=== PATIENT | male | born 1995 | race Caucasian/White ===

== ENCOUNTER 2016-09-14 16:00 | Emergency (ER) | payer BC ==
[2016-09-14 17:02] VITALS: BP 126/69
--- NOTE | 2016-09-14 17:16 | UC ---
Knee Pain HPI - HPI Summary HPI Summary: 3-4 days ago noticed R posterior knee pain, feels swollen when he bends it. Denies any trauma or trouble walking. No hx of surgery or instability. 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 - History of Current Complaint Stated Complaint: KNEE PAIN Time Seen by Provider: 09/14/16 16:50 Hx Obtained From: Patient Onset/Duration: Gradual Onset, Lasting Days Severity Initially: Mild Severity Currently: Mild Character: Dull, Stiffness Aggravating Factor(s): Movement, Weight Bearing - Allergies/Home Medications Allergies/Adverse Reactions: Allergies Allergy/AdvReac Type Severity Reaction Status Date / Time Amoxicillin Allergy Unknown Unknown Verified 09/14/16 16:54 Reaction Details Sulfamethoxazole Allergy Unknown Unknown Verified 06/10/14 19:37 w/Trimethoprim Reaction [From Bactrim] Details Home Medications: Home Medications Albuterol HFA INHALER* [Ventolin HFA Inhaler*] 2 inhaler INH QID PRN 09/14/16 [ History Confirmed 09/14/16] PMH/Surg Hx/FS Hx/Imm Hx Endocrine History Of: Denies: Diabetes, Thyroid Disease Cardiovascular History Of: Denies: Cardiac Disorders, Hypertension, Pacemaker/ICD Respiratory History Of: Reports: Asthma - USES AN INHALER Denies: COPD GI/ History Of: Denies: Ulcer, Renal Disease - Surgical History Surgical History: None - Family History Known Family History: Positive: Hypertension - Social History Occupation: Employed Full-time Alcohol Use: Occasionally Substance Use Type: None Smoking Status (MU): Current Every Day Smoker Type: Cigarettes Amount Used/How Often: 1/2 PPD- states down to a couple a day 12/25 Length of Time of Smoking/Using Tobacco: 4 YEARS Have You Smoked in the Last Year: Yes Review of Systems Constitutional: Negative Skin: Negative Eyes: Negative ENT: Negative Respiratory: Negative Cardiovascular: Negative Gastrointestinal: Negative Genitourinary: Negative Motor: Negative Neurovascular: Negative Musculoskeletal: Arthralgia Neurological: Negative Psychological: Negative All Other Systems Reviewed And Are Negative: Yes Physical Exam Triage Information Reviewed: Yes Appearance: Well-Appearing, No Pain Distress, Well-Nourished Vital Signs: Initial Vital Signs Temp 98.1 F 09/14/16 16:55 Pulse 91 09/14/16 16:55 Resp 16 09/14/16 16:55 BP 126/69 09/14/16 16:55 Pulse Ox 100 09/14/16 16:55 Vital Signs Reviewed: Yes Eye Exam: Normal Eyes: Positive: Conjunctiva Clear ENT Exam: Normal ENT: Positive: Normal ENT inspection, Hearing grossly normal, Pharynx normal, TMs normal Dental Exam: Normal Neck exam: Normal Respiratory Exam: Normal Respiratory: Positive: Chest non-tender, Lungs clear, Normal breath sounds, No respiratory distress, No accessory muscle use Cardiovascular Exam: Normal Cardiovascular: Positive: RRR, No Murmur Musculoskeletal Exam: Other - creaking in R knee Musculoskeletal: Positive: Strength Intact, ROM Intact Neurological Exam: Normal Psychological Exam: Normal Skin Exam: Normal Knee Pain Course/Dx - Differential Dx/Diagnosis Provider Diagnoses: R knee cordero's cyst Discharge - Discharge Plan Condition: Stable Disposition: HOME Prescriptions: Naproxen [Naproxen 500 MG TABS] 500 mg PO BID #20 tab Patient Education Materials: Bakers Cyst (ED) Referrals: Sushila Daniel MD [Medical Doctor] - If Needed
== END 2016-09-14 17:46 | disposition home or self-care (01) ==
LOC: UCEAST 16:00
DX: M71.21 Synovial cyst of popliteal space [Baker], right knee (principal); J45.909 Unspecified asthma, uncomplicated; Z88.1 Allergy status to other antibiotic agents; Z88.2 Allergy status to sulfonamides; F17.210 Nicotine dependence, cigarettes, uncomplicated
CPT/HCPCS: 99212; G0463

== ENCOUNTER 2016-12-21 01:27 | Emergency (ER) | payer BC ==
[2016-12-21 02:47] VITALS: BP 107/81
--- NOTE | 2016-12-21 03:05 | ED ---
Abdirizak Melvin Alok, scribed for Dharmesh Morris MD on 12/21/16 at 0216 . Head Injury - HPI Summary HPI Summary: 21M presents to the ED with a laceration at the top of the forehead. Pt states he was running down the stairs when he jumped to the bottom hitting his head on the ceiling on the way down. Pt denies LOC or ETOH use. Pt denies neck pain, abd pain, or hip pain. Pt is allergic to amoxicillin and bactrim. Pt is unsure of his late tetanus shot date. - History Of Current Complaint Chief Complaint: EDHeadInjury Stated Complaint: HEAD LAC Hx Obtained From: Patient Mechanism Of Injury: Blunt Trauma Onset/Duration: Started Minutes Ago, Traumatic, Still Present Onset of Pain: Immediate Severity Currently: Moderate Severity Initially: Moderate Pain Intensity: 8 Pain Scale Used: 0-10 Numeric Location of Head Injury: Frontal Location: Discrete At: - top of forehead Associated Signs And Symptoms: Negative - Allergies/Home Medications Allergies/Adverse Reactions: Allergies Allergy/AdvReac Type Severity Reaction Status Date / Time Amoxicillin Allergy Unknown Unknown Verified 09/14/16 16:54 Reaction Details Sulfamethoxazole Allergy Unknown Unknown Verified 06/10/14 19:37 w/Trimethoprim Reaction [From Bactrim] Details PMH/Surg Hx/FS Hx/Imm Hx Endocrine/Hematology History: Denies: Hx Diabetes, Hx Thyroid Disease Cardiovascular History: Denies: Hx Hypertension, Hx Pacemaker/ICD Respiratory History: Reports: Hx Asthma - USES AN INHALER Denies: Hx Chronic Obstructive Pulmonary Disease (COPD) GI History: Denies: Hx Ulcer History: Denies: Hx Dialysis, Hx Renal Disease Sensory History: Denies: Hx Hearing Aid Psychiatric History: Denies: Hx Panic Disorder Infectious Disease History: No Infectious Disease History: Denies: Hx Clostridium Difficile, Hx Hepatitis, Hx Human Immunodeficiency Virus (HIV), Hx of Known/Suspected MRSA, Hx Shingles, Hx Tuberculosis, Hx Known/ Suspected VRE, Hx Known/Suspected VRSA, History Other Infectious Disease, Traveled Outside the [place] in Last 30 Days - Family History Known Family History: Positive: Hypertension - Social History Occupation: Student Lives: With Family Alcohol Use: Occasionally Substance Use Type: Reports: None Smoking Status (MU): Current Every Day Smoker Type: Cigarettes Amount Used/How Often: 1/2 PPD- states down to a couple a day 12/25 Length of Time of Smoking/Using Tobacco: 4 YEARS Have You Smoked in the Last Year: Yes Review of Systems Negative: Fever Negative: Abdominal Pain Negative: Other - hip or neck pain Positive: Other - laceration at top of head Positive: Headache - top of head All Other Systems Reviewed And Are Negative: Yes Physical Exam - Summary Physical Exam Summary: The patient is well-nourished in no acute distress and in no acute pain. The skin is warm and dry and skin color reflects adequate perfusion. HEENT: 3cm laceration frontal region head. No segundo monae or raccoon eyes. No step-off or deformity appreciated. No crepitance. No blood in nose. The pupils are equal and reactive. The conjunctivae are clear and without drainage. Nares are patent and without drainage. Mouth reveals moist mucous membranes and the throat is without erythema and exudate. The external ears are intact. The ear canals are patent and without drainage. The tympanic membranes are intact. Neck is supple with full range of motion and non-tender. There are no carotid bruits. There is no neck vein distension. Respiratory: Chest is non-tender. Lungs are clear to auscultation and breath sounds are symmetrical and equal. Cardiovascular: Hear is regular rate and rhythm. There is no murmur or rub auscultated. There is no peripheral edema and pulses are symmetrical and equal. Abdomen: The abdomen is soft and non-tender. There are normal bowel sounds heard in all four quadrants and there is no organomegaly palpated. Musculoskeletal: There is no back pain noted. Extremities are non-tender with full range of motion. There is good capillary refill. There is no peripheral edema or calf tenderness elicited. Neurological: Patient is alert and oriented to person, place and time. The patient has symmetrical motor strength in all four extremities. Cranial nerves are grossly intact. Deep tendon reflexes are symmetrical and equal in all four extremities. Psychiatric: The patient has an appropriate affect and does not exhibit any anxiety or depression. Triage Information Reviewed: Yes Vital Signs On Initial Exam: Initial Vitals Temp Pulse Resp BP 97.8 F 117 20 120/75 12/21/16 01:33 12/21/16 01:33 12/21/16 01:33 12/21/16 01:33 Vital Signs Reviewed: Yes Procedures - Laceration/Wound Repair 1 Location: head Description: Linear Anesthesia: 2.0%, Lido Length, Depth and Shape: 3 cm long x 4 mm wide x 4mm deep Betadine Prep?: Yes - 8 cc. Laceration/Wound Explored: clean, Other - Wound explored does not extend to skull. Does not extend to subcutaneous. Only extends to Dermis Suture Type: Nylon Number of Sutures: 12 - Pt tolerated well. Diagnostics - Vital Signs Vital Signs Temp Pulse Resp BP Pulse Ox 12/21/16 01:36 97.8 F 117 20 120/75 100 12/21/16 01:33 97.8 F 117 20 120/75 - Laboratory Lab Statement: Any lab studies that have been ordered have been reviewed, and results considered in the medical decision making process. Head Injury Course/Dx Course Of Treatment: Pt presented with 3 cm laceration of the forehead. No step- off, no deformity, no crepitance. Explored wound and found it does not extend to skul or subcutaneous and only extends to dermis. 12 sutres applied pt tollerated well and will be discharged with instructions for staple care and recommendation to FU with PCP. - Diagnoses Differential Diagnosis/HQI/PQRI: Concussion Without LOC, Laceration Provider Diagnoses: Laceration of head Discharge - Discharge Plan Condition: Stable Disposition: HOME Patient Education Materials: Staple Care (ED), Concussion (ED) Referrals: Garret Cain MD [Primary Care Provider] - Additional Instructions: Please follow up with your primary care provider. Stables may be removed in one week. The documentation as recorded by the Abdirizak briseno Alok accurately reflects the service I personally performed and the decisions made by , Dharmesh Morris MD.
== END 2016-12-21 02:49 | disposition home or self-care (01) ==
LOC: ED 01:27
DX: S01.91XA Laceration without foreign body of unspecified part of head, initial encounter (principal); R51 Headache; W22.8XXA Striking against or struck by other objects, initial encounter; Y93.9 Activity, unspecified; Y99.9 Unspecified external cause status
CPT/HCPCS: 12002; 36415; 86703; 99282

== ENCOUNTER 2017-02-02 16:43 | Emergency (ER) | payer BC ==
[2017-02-02 16:55] VITALS: BP 105/67
--- NOTE | 2017-02-02 17:52 | UC ---
Complaint Male HPI - HPI Summary HPI Summary: TWO DAY HISTORY OF TENDER FLUCTUANT FIRM NODULE ON (LEFT LATERAL MID-) SHAFT OF PENIS. NO DISCHARGE. NO PENILE DISCHARGE. NEW [facility] PARTNER ONE MONTH AGO. NO PREVIOUS HISTORY OF STD. PARTNER REPORTED NO STD HISTORY. NO TESTICULAR PAIN. NO FEVER. NO RASHES. NO ABDOMINAL PAIN. NO NIGHT SWEATS. NO CHANGES IN MENTAL STATUS. NO OTHER LESIONS. NO FAMILY HISTORY OF PENILE OR TESTICULAR CANCER. - History of Current Complaint Chief Complaint: UCSkin Stated Complaint: PERSONAL Time Seen by Provider: 02/02/17 16:49 Hx Obtained From: Patient Onset/Duration: Sudden Onset, Lasting Days, Still Present Timing: Constant, Lasting Days Severity Initially: Moderate Severity Currently: Moderate Location: Penis Associated Signs And Symptoms: Positive: Penile Swelling - LESION ON LEFT LATERAL MID SHAFT OF PENIS. Negative: Diaphoresis, Back Pain, Fever, Hematuria , Dysuria, Constipation, Blood in Stool, Rectal Pain, Appetite, Nausea, Vomiting (# Of Episodes =), Penile Discharge - Allergies/Home Medications Allergies/Adverse Reactions: Allergies Allergy/AdvReac Type Severity Reaction Status Date / Time Amoxicillin Allergy Unknown Unknown Verified 02/02/17 16:56 Reaction Details Sulfamethoxazole Allergy Unknown Unknown Verified 02/02/17 16:56 w/Trimethoprim Reaction [From Bactrim] Details Home Medications: Home Medications Cyclobenzaprine TAB* [Flexeril 10 MG TAB*] 10 mg PO DAILY 02/02/17 [History Confirmed 02/02/17] Escitalopram Oxalate [Lexapro 20 mg] 20 mg PO DAILY 02/02/17 [History Confirmed 02/02/17] PMH/Surg Hx/FS Hx/Imm Hx Previously Healthy: Yes - Surgical History Surgical History: None - Family History Known Family History: Positive: Hypertension - Social History Occupation: Employed Full-time Lives: With Family Alcohol Use: Occasionally Substance Use Type: None Smoking Status (MU): Current Every Day Smoker Type: Cigarettes Amount Used/How Often: 1/2 PPD- states down to a couple a day 12/25 Length of Time of Smoking/Using Tobacco: 4 YEARS Have You Smoked in the Last Year: Yes Cessation Counseling: Patient Advised to Stop Review of Systems Constitutional: Negative Skin: Other - LESION ON LEFT LATERAL MID SHAFT OF PENIS Eyes: Negative ENT: Negative Respiratory: Negative Cardiovascular: Negative Gastrointestinal: Negative Genitourinary: Negative Motor: Negative Neurovascular: Negative Musculoskeletal: Negative Neurological: Negative Psychological: Negative All Other Systems Reviewed And Are Negative: Yes Physical Exam Triage Information Reviewed: Yes Appearance: Well-Appearing, No Pain Distress, Well-Nourished Vital Signs: Initial Vital Signs Temp 99.0 F 02/02/17 16:50 Pulse 98 02/02/17 16:50 Resp 18 02/02/17 16:50 BP 105/67 02/02/17 16:50 Pulse Ox 98 02/02/17 16:50 Vital Signs Reviewed: Yes Eye Exam: Normal ENT Exam: Normal ENT: Positive: Normal ENT inspection, Hearing grossly normal, TMs normal Dental Exam: Normal Neck exam: Normal Neck: Positive: Supple, Nontender, No Lymphadenopathy Respiratory Exam: Normal Respiratory: Positive: Chest non-tender, Lungs clear, Normal breath sounds, No respiratory distress, No accessory muscle use Cardiovascular Exam: Normal Cardiovascular: Positive: RRR, No Murmur Abdominal Exam: Normal Abdomen Description: Positive: Nontender, No Organomegaly Musculoskeletal Exam: Normal Neurological Exam: Normal Psychological Exam: Normal Psychological: Positive: Normal Response To Family Skin: Positive: Other - LESION ON LEFT LATERAL MID SHAFT OF PENIS Complaint Male Course/Dx - Differential Dx/Diagnosis Differential Diagnosis/HQI/PQRI: Cancer, Other - STD Provider Diagnoses: ABSCESS ON LEFT LATERAL MID SHAFT OF PENIS - Physician Notifications Instructed by Provider To: Have Pt Call For Appt. - PLEASE CALL DR BURROWS[facility] SERVICE FOR EVALUATION OF LESION Discharge - Discharge Plan Condition: Stable Disposition: HOME Prescriptions: DOXYcycline CAP(*) [DOXYcycline 100MG CAP(*)] 100 mg PO BID #20 cap Patient Education Materials: Sexually Transmitted Diseases (ED), Abscess (ED) Referrals: [facility] [place] [facility]YSICIAN REFERRAL [Outside] Garret Cain MD [Primary Care Provider] - Todd Burrows MD [Medical Doctor] - Additional Instructions: PLEASE RETURN IF YOU HAVE POSITIVE STD RESULTS FOR FURTHER TREATMENT. PLEASE SEEK PROMPT EVALUATION WITH DR BURROWS[facility] SERVICE FOR EVALUATION OF LESION/ ABSCESS. PRIMARY CARE REFERRAL INFORMATION HAS ALSO BEEN PROVIDED. Images Perineum Male: 1 - 2CM X 1CM TENDER FIRM FLUCTUANT MARCATED LOOSELY MOBILE NODULE UNDER SKIN ON LEFT LATERAL MIDSHAFT OF PENIS
[2017-02-02] MEDS ORDERED: DOXYcycline CAP(*) 100 MG PO ONE (17:55)
[2017-02-03 11:40] LABS: Syphilis Index < 0.1 Index
== END 2017-02-02 18:04 | disposition home or self-care (01) ==
LOC: UCEAST 16:43
DX: N48.21 Abscess of corpus cavernosum and penis (principal); Z72.0 Tobacco use
CPT/HCPCS: 36415; 86592; 86703; 87491; 87591; 99212; A9270-GY; G0463

== ENCOUNTER 2017-02-24 08:46 | Emergency (ER) | payer BC ==
[2017-02-24 09:01] VITALS: BP 126/86
--- NOTE | 2017-02-24 09:17 | RAD ---
HISTORY: Left-sided chest pain COMPARISONS: None VIEWS: 4: Frontal dual-energy and lateral views of the chest. FINDINGS: CARDIOMEDIASTINAL SILHOUETTE: The cardiomediastinal silhouette is normal. MIRLANDE: The mirlande are normal. PLEURA: The costophrenic angles are sharp. No pleural abnormalities are noted. LUNG PARENCHYMA: The lungs are clear. ABDOMEN: The upper abdomen is clear. There is no subphrenic gas. BONES AND SOFT TISSUES: No bone or soft tissue abnormalities are noted. OTHER: None. IMPRESSION: NO ACTIVE CARDIOPULMONARY DISEASE.
--- NOTE | 2017-02-24 09:58 | UC ---
Cardiac HPI - HPI Summary HPI Summary: 21 yo male with a 4-5 day hx of constant left sided chest pain pain is localized to a small area (left upper sternal border) and non radiating hurts with deep breath symptoms have not limited his activity no SOB no n/v no uri sxs no f/c no abd pain - History of Current Complaint Chief Complaint: UCChestPain Stated Complaint: CHEST PAIN Time Seen by Provider: 02/24/17 08:49 Hx Obtained From: Patient Onset/Duration: Sudden Onset Timing: Constant Initial Severity: Moderate Current Severity: Moderate Pain Intensity: 4 Chest Pain Location: Discrete at:, Upper Sternal - Left Character: Sharp/Stabbing Aggravating: Deep Breaths Associated Signs & Symptoms: Positive: Chest Pain - Allergy/Home Medications Allergies/Adverse Reactions: Allergies Allergy/AdvReac Type Severity Reaction Status Date / Time Amoxicillin Allergy Unknown Unknown Verified 02/24/17 08:56 Reaction Details Sulfamethoxazole Allergy Unknown Unknown Verified 02/24/17 08:56 w/Trimethoprim Reaction [From Bactrim] Details PMH/Surg Hx/FS Hx/Imm Hx Previously Healthy: Yes Psychological History: Anxiety - Surgical History Surgical History: None - Family History Known Family History: Positive: Hypertension - Social History Alcohol Use: Occasionally Substance Use Type: None Smoking Status (MU): Current Every Day Smoker Type: Cigarettes Amount Used/How Often: 1/2-1 PPD Length of Time of Smoking/Using Tobacco: 4 YEARS Have You Smoked in the Last Year: Yes Review of Systems Constitutional: Negative Skin: Negative Eyes: Negative ENT: Negative Respiratory: Negative Cardiovascular: Chest Pain Gastrointestinal: Negative Genitourinary: Negative Motor: Negative Neurovascular: Negative Musculoskeletal: Negative Neurological: Negative Psychological: Negative All Other Systems Reviewed And Are Negative: Yes Physical Exam Triage Information Reviewed: Yes Appearance: Well-Appearing, No Pain Distress, Well-Nourished, Thin Vital Signs: Initial Vital Signs Temp 97.9 F 02/24/17 08:53 Pulse 106 02/24/17 08:53 Resp 16 02/24/17 08:53 BP 126/86 02/24/17 08:53 Pulse Ox 99 02/24/17 08:53 Vital Signs Reviewed: Yes Eyes: Positive: Conjunctiva Clear ENT: Positive: Hearing grossly normal. Negative: Nasal congestion, Nasal drainage, Trismus, Muffled/hoarse voice Dental: Negative: Abscess @ Neck: Positive: Supple, Nontender, No Lymphadenopathy Respiratory: Positive: Lungs clear, Normal breath sounds, No respiratory distress. Negative: Chest non-tender Cardiovascular: Positive: RRR, No Murmur, Pulses Normal Abdomen Description: Positive: Nontender, No Organomegaly. Negative: CVA Tenderness (R) Musculoskeletal: Positive: ROM Intact, No Edema Neurological: Positive: Alert, Muscle Tone Normal Psychological Exam: Normal Skin Exam: Normal - Clinical Impression Provider Diagnoses: acute chest wall pain Discharge - Discharge Plan Condition: Stable Disposition: HOME Patient Education Materials: Costochondritis (ED), Chest Wall Pain (ED) Referrals: No Primary Care Phys,NOPCP [Primary Care Provider] - Additional Instructions: continue naproxen heat recheck in 2 weeks if not completely better recheck sooner for new or worsening symptoms see you MD in 2 weeks if not better if unable to see your provider you may return here Images Front/Back of Body, Lg ([place]): 1 - pain here and reproducable
== END 2017-02-24 09:55 | disposition home or self-care (01) ==
LOC: UCEAST 08:46
DX: R07.89 Other chest pain (principal); F41.9 Anxiety disorder, unspecified; Z88.1 Allergy status to other antibiotic agents; Z88.2 Allergy status to sulfonamides; F17.210 Nicotine dependence, cigarettes, uncomplicated
CPT/HCPCS: 71020; 99211; G0463

== ENCOUNTER 2017-09-13 14:59 | Emergency (ER) | payer BC ==
[2017-09-13 15:23] VITALS: BP 120/81
--- NOTE | 2017-09-13 15:54 | UC ---
Skin Complaint HPI - HPI Summary HPI Summary: 21 y/o male presents to the urgent care c/o rash in his RT arm, back and chest that itches a lot for the past 2 weeks. Pt went to see his PCP at [facility] and Dx w/ a fungal infection and RX Ketokonazole. He has been applying cream w/ any relief. Pt denies fever, SOB, chest pain, abdominal pain, N/V/D - History of Current Complaint Chief Complaint: UCRash Time Seen by Provider: 09/13/17 15:52 Stated Complaint: RASH Hx Obtained From: Patient Onset/Duration: Gradual Onset, Lasting Weeks - 2 weeks, Still Present, Worse Since - last week Skin Exposure Onset/Duration: Weeks Ago - 2 weeks Onset Severity: Mild Current Severity: Moderate Pain Intensity: 0 Pain Scale Used: 0-10 Numeric Location: Generalized - B/L arms, chest and upper back Character: Pruritus Aggravating Factor(s): Nothing Alleviating Factor(s): Nothing Associated Signs & Symptoms: Positive: Rash. Negative: Fever, Chills, Drainage , Tenderness - Allergy/Home Medications Allergies/Adverse Reactions: Allergies Allergy/AdvReac Type Severity Reaction Status Date / Time amoxicillin Allergy Unknown Verified 09/13/17 15:24 Reaction Details sulfamethoxazole Allergy Unknown Verified 09/13/17 15:24 [From Bactrim] Reaction Details trimethoprim [From Bactrim] Allergy Unknown Verified 09/13/17 15:24 Reaction Details Review of Systems Constitutional: Negative Skin: Rash Eyes: Negative ENT: Negative Respiratory: Negative Cardiovascular: Negative Gastrointestinal: Negative Genitourinary: Negative Motor: Negative Neurovascular: Negative Musculoskeletal: Negative Neurological: Negative Psychological: Negative Is Patient Immunocompromised?: No All Other Systems Reviewed And Are Negative: Yes PMH/Surg Hx/FS Hx/Imm Hx Previously Healthy: Yes Respiratory History: Asthma Psychological History: Anxiety, Depression - Surgical History Surgical History: None - Family History Known Family History: Positive: Hypertension - Social History Occupation: Employed Full-time Lives: With Family Alcohol Use: Occasionally Substance Use Type: None Smoking Status (MU): Light Every Day Tobacco Smoker Type: Cigarettes Amount Used/How Often: 1/2 PPD- states down to a couple a day 6/ Length of Time of Smoking/Using Tobacco: 4 YEARS Have You Smoked in the Last Year: Yes Physical Exam Triage Information Reviewed: Yes Vital Signs: Initial Vital Signs Temp 98.1 F 09/13/17 15:21 Pulse 102 09/13/17 15:21 Resp 12 09/13/17 15:21 BP 120/81 09/13/17 15:21 Pulse Ox 99 09/13/17 15:21 - Additional Comments Vital Signs Reviewed: Yes General: 21 y/o male well appearing, well nourished in no acute apparent pain distress, sitting comfortably on examining table Eye Exam: Normal Eyes: Positive: Conjunctiva Clear - PERRLA< EOMI, fundi grossly normal ENT: Positive: Normal ENT inspection, Hearing grossly normal, Pharynx normal, TMs normal Neck: Positive: Supple, Nontender, No Lymphadenopathy Respiratory: Positive: Chest non-tender, Lungs clear, Normal breath sounds, No respiratory distress Cardiovascular: Positive: RRR, No Murmur, Pulses Normal, Brisk Capillary Refill Abdomen Description: Positive: Nontender, No Organomegaly, Soft. Negative: CVA Tenderness (R), CVA Tenderness (L) Bowel Sounds: Positive: Present Musculoskeletal: Positive: Strength Intact, ROM Intact, No Edema Neurological: Positive: Alert, Muscle Tone Normal Psychological Exam: Normal Skin: Positive: B/L arms. chest , upper back w/ and erythematous eruptions with a large number of oval spots, ranging in diameter from 0.5 centimeter to 1 cm.. The individual spots form a symmetrical "Yogi tree" pattern on the back. chest w/ typical herald patch, non tender to palpation, no drainage observed, signs of excoriation observed Course/Dx - Course Course Of Treatment: 21 y/o male presents to the urgent care c/o rash in his RT arm, back and chest that itches a lot for the past 2 weeks. Pt went to see his PCP at [place] and Dx w/ a fungal infection and RX Ketokonazole. He has been applying cream w/ any relief. Pt denies fever, SOB, chest pain, abdominal pain, N/V/D. Hx obtained. Pt w/ unspecified rash in B/L arms, chest and upper back. Pt w/ herald patch on chest. Most likely Pityriasis Rocea. Tx w/ Ketoconazole getting worse. Pt Advised rash is self limited and it can take few weeks to resolve. Pt Rx Acyclovir PO and Hydrocortisone topical cream to alleviate symptoms. Pt advised to f/u w/ Vocational Training Instructor orPCP is not improvement of symptoms. Pt understood and agreed w/ plan of care. - Differential Diagnoses - Skin Complaint Differential Diagnoses: Contact Dermatitis, Local Allergic Reaction, Tinea, Urticaria, Varicella Zoster - Diagnoses Provider Diagnoses: 1- Acute rash possible Pityriasis Rosea. 2-Pruritus Discharge - Discharge Plan Condition: Stable Disposition: HOME Prescriptions: Acyclovir* [Zovirax 400 MG TAB*] 800 mg PO QID #28 tab Hydrocortisone/Pramoxine [Hydrocortisone Acetate/Pr] 1 cre [place] BID #1 cre Patient Education Materials: Acute Rash (ED) Referrals: [facility] [place] [facility] REFERRAL [Outside] Carolann Gama [Medical Doctor] - 1 Week Additional Instructions: 1-Please take full course of Medication as directed. 2- apply toical cream as directed andrey alleviate pruritus. 3-Please F/u with your PCP or Vocational Training Instructor if not improvement or worsening symptoms in 1 week for further evaluation and treatment.
== END 2017-09-13 16:37 | disposition home or self-care (01) ==
LOC: UCEAST 14:59
DX: R21 Rash and other nonspecific skin eruption (principal); L29.9 Pruritus, unspecified; J45.909 Unspecified asthma, uncomplicated; F41.9 Anxiety disorder, unspecified; F32.9 Major depressive disorder, single episode, unspecified; Z88.1 Allergy status to other antibiotic agents; Z88.2 Allergy status to sulfonamides; F17.210 Nicotine dependence, cigarettes, uncomplicated
CPT/HCPCS: 99212; G0463

== ENCOUNTER 2018-05-01 19:08 | Emergency (ER) | payer BC ==
[2018-05-01 19:21] VITALS: BP 118/93
[2018-05-01] MEDS ORDERED: Metoclopramide TAB* 10 MG PO ONE (19:25)
[2018-05-01] MEDS ORDERED: Ketorolac INJ* 60 MG/2 ML VIAL IM ONE (19:25)
--- NOTE | 2018-05-01 19:30 | UC ---
Headache HPI - HPI Summary HPI Summary: This patient is a 22 year old M presenting to [facility] with a chief complaint of PATRICIA since around 1730 today. He reports he has had 3 migraines in the last week. On the first and second day, his migraine was subsided by Imitrex, but today, it continued even after taking Imitrex. The patient rates the pain 8/10 in severity. Symptoms aggravated by light and noise. Symptoms alleviated by nothing. Patient reports nausea and vomiting (x1 while driving here). Patient denies fever, chills, and neck pain. The patient is ambulating in and out of the room. PMHx of migraines. - History Of Current Complaint Chief Complaint: UCHeadache Stated Complaint: HEADACHE Time Seen by Provider: 05/01/18 19:19 Hx Obtained From: Patient Onset/Duration: Sudden Onset, Lasting Weeks - since 1 week ago (had 3 migraines) , Still Present Onset Of Symptoms: Sudden Currently Pain Is: Severe Pain Intensity: 8 Pain Scale Used: 0-10 Numeric Timing: Intermittent, Lasting: Character: Migraine Aggravating Factor(s): Bright Lights, Other - noise Allevating Factor(s): Nothing Associated Signs And Symptoms: Positive: Nausea, Vomiting, Other (Noted In Comments) - denies chills. Negative: Fever, Neck Pain - Allergies/Home Medications Allergies/Adverse Reactions: Allergies Allergy/AdvReac Type Severity Reaction Status Date / Time amoxicillin Allergy Unknown Verified 05/01/18 19:13 Reaction Details sulfamethoxazole Allergy Unknown Verified 05/01/18 19:13 [From Bactrim] Reaction Details trimethoprim [From Bactrim] Allergy Unknown Verified 05/01/18 19:13 Reaction Details Home Medications: Home Medications SUMAtriptan TAB* [Imitrex TAB*] 1 tab PO BID 05/01/18 [History Confirmed ] PMH/Surg Hx/FS Hx/Imm Hx Respiratory History: Asthma Neurological History: Migraine - Surgical History Surgical History: Yes Surgery Procedure, Year, and Place: Moles removes. - Family History Known Family History: Positive: Hypertension - Social History Alcohol Use: Occasionally Substance Use Type: Marijuana Substance Use Comment - Amount & Last Used: 04/30/18 Smoking Status (MU): Light Every Day Tobacco Smoker Type: Cigarettes Amount Used/How Often: 1/2ppd Length of Time of Smoking/Using Tobacco: approx 2009 Have You Smoked in the Last Year: Yes Review of Systems Constitutional: Other - denies fever and chills Eyes: Photophobia Gastrointestinal: Vomiting, Nausea Musculoskeletal: Other: - denies neck pain Neurological: Headache - migraine aggravated by light and sound All Other Systems Reviewed And Are Negative: Yes Physical Exam - Summary Physical Exam Summary: VITAL SIGNS: Reviewed. GENERAL: Patient is a well-developed and nourished MALE who is lying comfortable in the stretcher. Patient is not in any acute respiratory distress. HEAD AND FACE: Normocephalic EYES: PERRLA, EOMI x 2. EARS: Hearing grossly intact. MOUTH: Oropharynx within normal limits. NECK: Supple, trachea is midline, no adenopathy, no JVD, no carotid bruit. No meningeal signs. CHEST: Symmetric, no tenderness at palpation LUNGS: Clear to auscultation bilaterally. No wheezing or crackles. CVS: Regular rate and rhythm, S1 and S2 present, no murmurs or gallops appreciated. ABDOMEN: Soft, non-tender. Bowel sounds are normal. No abdominal abnormal pulsations. EXTREMITIES: Full ROM in all major joints, no edema, no cyanosis or clubbing. NEURO: Alert and oriented x 3. No acute neurological deficits. Speech is normal and follows commands. SKIN: Dry and warm Triage Information Reviewed: Yes Vital Signs: Initial Vital Signs Temp 97.3 F 05/01/18 19:16 Pulse 81 05/01/18 19:16 Resp 18 05/01/18 19:16 BP 118/93 05/01/18 19:16 Pulse Ox 100 05/01/18 19:16 Vital Signs Reviewed: Yes Headache Course/Dx - Course Course Of Treatment: Patient is a 22-year-old male who presents to the urgent care with chief complaint of having a migraine headache. Patient has history migraine headaches for which the patient takes Imitrex. In the last week he has had 3 episodes of migraines. He took Imitrex the symptoms improved. Today he took the Imitrex and the symptoms did not improve. He had one episode of nausea and vomiting therefore he doesn't think he kept the Imitrex. Therefore he came into the urgent care. The headache is a throbbing-like pain, 8 out of 10 without radiation. He denies any neck pain or stiff neck. Positive photophobia and is irritated by noice. Physical exam shows no meningeal signs, the neurological exam is intact. He was given Toradol, Benadryl and Reglan. At this point the patient will be discharged home with follow-up with primary care physician. Patient is hemodynamically stable alert and oriented 3. - Differential Dx/Diagnosis Provider Diagnoses: migraine Discharge - Sign-Out/Discharge Documenting (check all that apply): Patient Departure All imaging exams completed and their final reports reviewed: No Studies - Discharge Plan Condition: Stable Disposition: HOME Patient Education Materials: Migraine Headache (ED) Referrals: [facility] [place] [facility] [Outside] Additional Instructions: Take Acetaminophen or ibuprofen for pain Increase your fluid intake Return to the or go to the emergency department if symptoms worsen Follow-up with primary care physician in next 2-3 days - Billing Disposition and Condition Condition: STABLE Disposition: Home - Attestation Statements Document Initiated by Scribe: Yes Documenting Scribe: Angel Negrete Provider For Whom Scribe is Documenting (Include Credential): Edgardo Stone MD Scribe Attestation: Angel Melvin, scribed for Edgardo Stone MD on 05/01/18 at 2043. Scribe Documentation Reviewed: Yes Provider Attestation: The documentation as recorded by the Angel briseno accurately reflects the service I personally performed and the decisions made by me, Edgardo Stone MD
[2018-05-01] MEDS: diPHENhydraMINE PO* 50 MG PO ONE ×2 (19:34→19:41)
== END 2018-05-01 19:59 | disposition home or self-care (01) ==
LOC: UCEAST 19:08
DX: G43.909 Migraine, unspecified, not intractable, without status migrainosus (principal); F17.210 Nicotine dependence, cigarettes, uncomplicated; Z88.0 Allergy status to penicillin
CPT/HCPCS: 99212; A9270-GY; G0463; J1885

== ENCOUNTER 2018-10-30 12:10 | Emergency (ER) | payer BC ==
[2018-10-30 12:20] VITALS: BP 118/75
--- NOTE | 2018-10-30 12:26 | UC ---
Throat Pain/Nasal Kyle HPI - HPI Summary HPI Summary: 23 -year-old male with sore throat and bilateral ear since last evening. - History of Current Complaint Chief Complaint: UCGeneralIllness Stated Complaint: SORE THROAT EAR PAIN HEADACHE Time Seen by Provider: 10/30/18 12:26 Hx Obtained From: Patient Onset/Duration: Gradual Onset Severity: Mild Pain Intensity: 5 Cough: None Associated Signs & Symptoms: Positive: Negative - Epiglottits Risk Factors Epiglottis Risk Factors: Negative - Allergies/Home Medications Allergies/Adverse Reactions: Allergies Allergy/AdvReac Type Severity Reaction Status Date / Time amoxicillin Allergy Unknown Verified 10/30/18 12:20 Reaction Details sulfamethoxazole Allergy Unknown Verified 10/30/18 12:20 [From Bactrim] Reaction Details trimethoprim [From Bactrim] Allergy Unknown Verified 10/30/18 12:20 Reaction Details PMH/Surg Hx/FS Hx/Imm Hx Previously Healthy: Yes - Surgical History Surgical History: Yes Surgery Procedure, Year, and Place: Moles removed - Family History Known Family History: Positive: Hypertension - Social History Alcohol Use: Weekly Substance Use Type: Marijuana Substance Use Comment - Amount & Last Used: 04/30/18 Smoking Status (MU): Light Every Day Tobacco Smoker Type: Cigarettes Amount Used/How Often: 1/2ppd Length of Time of Smoking/Using Tobacco: approx 2009 Have You Smoked in the Last Year: Yes Review of Systems All Other Systems Reviewed And Are Negative: Yes Constitutional: Positive: Fever ENT: Positive: Sore Throat Is Patient Immunocompromised?: No Physical Exam Triage Information Reviewed: Yes Appearance: Well-Appearing, No Pain Distress, Well-Nourished Vital Signs: Initial Vital Signs Temp 98.9 F 10/30/18 12:15 Pulse 97 10/30/18 12:15 Resp 16 10/30/18 12:15 BP 118/75 10/30/18 12:15 Pulse Ox 97 10/30/18 12:15 Vital Signs Reviewed: Yes Eye Exam: Normal ENT: Positive: Pharyngeal erythema, Tonsillar swelling, Tonsillar exudate, Uvula midline. Negative: Trismus, Muffled voice, Hoarse voice Neck: Positive: Supple, Nontender, Enlarged Nodes @ - Bilateral tonsillar lymph nodes enlarged. Respiratory: Positive: Lungs clear, Normal breath sounds, No respiratory distress, No accessory muscle use Cardiovascular: Positive: RRR, No Murmur, Pulses Normal, Brisk Capillary Refill Musculoskeletal Exam: Normal Neurological Exam: Normal Psychological Exam: Normal Skin Exam: Normal Throat Pain/Nasal Course/Dx - Course Course Of Treatment: Rapid strep test was: positive. Because the patient has some allergies to certain antibiotics and going to start him on clindamycin 300 mg by mouth 3 times a day for 10 days. Change his toothbrush in 24 hours. - Differential Dx/Diagnosis Provider Diagnosis: Strep pharyngitis Discharge - Sign-Out/Discharge Documenting (check all that apply): Patient Departure All imaging exams completed and their final reports reviewed: No Studies - Discharge Plan Condition: Fair Disposition: HOME Prescriptions: Clindamycin Cap(NF) [Clindamycin Cap 300 mg Cap(NF)] 300 mg PO TID 10 Days #30 cap Patient Education Materials: Strep Throat (DC) Referrals: [facility] [Outside] No Primary Care Phys,NOPCP [Primary Care Provider] - Additional Instructions: Increase fluids, warm saltwater gargles, Tylenol every 4 hours or Motrin every 6 -8 hours with food for pain. Take the medication for the full 10 days. Change your toothbrush in 24 hours. - Billing Disposition and Condition Condition: FAIR Disposition: Home
--- NOTE | 2018-11-02 13:30 | UC ---
- Progress Note Progress Note: Lab work lab work from October 30, 2018 for HIV 1 and 2 antibody self-referred comes back reflexed. [facility] laboratory calls and states they do not have a lavender top tube to complete the rest of the test. I called and left a message for the patient to call us back. The patient called back and he's planning to come in and get the lavender top tube drawn today at approximately 6 PM. Course/Dx - Diagnoses Provider Diagnoses: Strep pharyngitis Discharge - Sign-Out/Discharge Documenting (check all that apply): Patient Departure All imaging exams completed and their final reports reviewed: No Studies - Discharge Plan Condition: Fair Disposition: HOME Prescriptions: Clindamycin Cap(NF) [Clindamycin Cap 300 mg Cap(NF)] 300 mg PO TID 10 Days #30 cap Patient Education Materials: Strep Throat (DC) Referrals: [facility] [Outside] No Primary Care Phys,NOPCP [Primary Care Provider] - Additional Instructions: Increase fluids, warm saltwater gargles, Tylenol every 4 hours or Motrin every 6 -8 hours with food for pain. Take the medication for the full 10 days. Change your toothbrush in 24 hours. - Billing Disposition and Condition Condition: FAIR Disposition: Home
== END 2018-10-30 12:49 | disposition home or self-care (01) ==
LOC: UCEAST 12:10
DX: J02.0 Streptococcal pharyngitis (principal); Z88.0 Allergy status to penicillin; Z88.2 Allergy status to sulfonamides; F17.210 Nicotine dependence, cigarettes, uncomplicated
CPT/HCPCS: 36415; 86701; 86702; 86703; 87651; 99212; G0463

== ENCOUNTER 2019-02-15 11:57 | Emergency (ER) | payer BC ==
[2019-02-15] MEDS ORDERED: Famotidine TAB* 20 MG PO ONE (12:23)
[2019-02-15] MEDS ORDERED: Dexamethasone IV* 4 MG/ML 1 ML (4 MG) IM ONE (12:23)
[2019-02-15 13:35] VITALS: BP 112/68
--- NOTE | 2019-02-15 14:20 | ED ---
Allergic Reaction/Systemic - HPI Summary HPI Summary: This patient is a 23-year-old male presenting to the ED with right lower lip swelling from a bee sting approximately 10 minutes prior to arrival. He states he took 2 Benadryl, however was concerned with throat involvement. He currently denies any dysphagia, odynophagia, throat tightening, difficulty breathing or shortness of breath. He is unsure if he is allergic to bees. He states the right lower lip swelled up, but denies any worsening swelling or symptoms. He denies heart racing or CP. - History of Current Complaint Chief Complaint: EDAllergicReaction Time Seen by Provider: 02/15/19 12:20 Hx Obtained From: Patient Onset/Duration: Gradual Onset Timing: Constant Severity Initially: Moderate Severity Currently: Moderate Pain Intensity: 0 Pain Scale Used: 0-10 Numeric Location: Discrete @ - right lower lip Character: Swelling Alleviating Factor(s): Antihistamines Associated Signs And Symptoms: Positive: Negative - Related Hx Possible Reaction To: Insect - Allergies/Home Medications Allergies/Adverse Reactions: Allergies Allergy/AdvReac Type Severity Reaction Status Date / Time amoxicillin Allergy Unknown Verified 02/15/19 12:02 Reaction Details sulfamethoxazole Allergy Unknown Verified 02/15/19 12:02 [From Bactrim] Reaction Details trimethoprim [From Bactrim] Allergy Unknown Verified 02/15/19 12:02 Reaction Details Home Medications: Home Medications Bictegrav/Emtricit/Tenofov Ala [Biktarvy 50-200-25 mg Tablet] 1 tab PO DAILY 11/29 [History Confirmed 02/15/19] PMH/Surg Hx/FS Hx/Imm Hx Previously Healthy: Yes Endocrine/Hematology History: Denies: Hx Diabetes, Hx Thyroid Disease Cardiovascular History: Denies: Hx Hypertension, Hx Pacemaker/ICD Respiratory History: Reports: Hx Asthma - USES AN INHALER Denies: Hx Chronic Obstructive Pulmonary Disease (COPD) GI History: Denies: Hx Ulcer History: Denies: Hx Dialysis, Hx Renal Disease Sensory History: Denies: Hx Hearing Aid Psychiatric History: Denies: Hx Panic Disorder - Surgical History Surgery Procedure, Year, and Place: Moles removed - Immunization History Hx Pertussis Vaccination: No Immunizations Up to Date: Yes Infectious Disease History: Yes Infectious Disease History: Denies: Hx Clostridium Difficile, Hx Hepatitis, Hx Human Immunodeficiency Virus (HIV), Hx of Known/Suspected MRSA, Hx Shingles, Hx Tuberculosis, Hx Known/ Suspected VRE, Hx Known/Suspected VRSA, History Other Infectious Disease, Traveled Outside the [place] in Last 30 Days - Family History Known Family History: Positive: Hypertension - Social History Occupation: Employed Full-time Lives: With Family Alcohol Use: Weekly Hx Substance Use: Yes Substance Use Type: Reports: Marijuana Substance Use Comment - Amount & Last Used: 04/30/18 Hx Tobacco Use: Yes Smoking Status (MU): Light Every Day Tobacco Smoker Type: Cigarettes Amount Used/How Often: 1/2ppd Length of Time of Smoking/Using Tobacco: approx 2009 Have You Smoked in the Last Year: Yes Review of Systems Negative: Fever, Chills, Fatigue, Skin Diaphoresis Negative: Palpitations, Chest Pain Negative: Shortness Of Breath, Cough Negative: Nausea Genitourinary: Negative Positive: no symptoms reported, see HPI Negative: Arthralgia, Myalgia Positive: Other - right lower lip swelling Neurological: Negative Negative: Anxious All Other Systems Reviewed And Are Negative: Yes Physical Exam Triage Information Reviewed: Yes Vital Signs On Initial Exam: Initial Vitals Temp Pulse Resp BP Pulse Ox 97.7 F 90 16 130/95 97 02/15/19 11:59 02/15/19 11:59 02/15/19 11:59 02/15/19 11:59 02/15/19 11:59 Vital Signs Reviewed: Yes Appearance: Positive: Well-Appearing, Well-Nourished Skin: Positive: Warm, Skin Color Reflects Adequate Perfusion, Other - right lower lip swelling Head/Face: Positive: Normal Head/Face Inspection Eyes: Positive: EOMI, Conjunctiva Clear Neck: Positive: Supple, No Lymphadenopathy Respiratory/Lung Sounds: Positive: Clear to Auscultation, Breath Sounds Present Cardiovascular: Positive: Pulses are Symmetrical in both Upper and Lower Extremities Musculoskeletal: Positive: Strength/ROM Intact Neurological: Positive: Speech Normal Psychiatric: Positive: Affect/Mood Appropriate AVPU Assessment: Alert Diagnostics - Vital Signs Vital Signs Temp Pulse Resp BP Pulse Ox 02/15/19 13:33 98.3 F 64 16 112/68 99 02/15/19 11:59 97.7 F 90 16 130/95 97 - Laboratory Lab Statement: Any lab studies that have been ordered have been reviewed, and results considered in the medical decision making process. Allergic Reaction Course/Dx - Course Course Of Treatment: On physical examination, patient appears well, nondiaphoretic and nontoxic in appearing. There is mild swelling to the right lower lip where there is an obvious sting carter. He is given Decadron 8 mg IM as well as ice to the area and famotidine 40 mg. He took 50 mg Benadryl prior to arrival. On reexamination approximately one hour later, patient is asymptomatic with no swelling noted. Airway patent. No pharyngeal erythema or tonsillar swelling. He will be discharged with insect bite. - Diagnoses Provider Diagnoses: Lip swelling, Bee sting Discharge - Sign-Out/Discharge Documenting (check all that apply): Patient Departure Patient Received Moderate/Deep Sedation with Procedure: No - Discharge Plan Condition: Stable Disposition: HOME Patient Education Materials: Insect Bite or Sting (ED) Referrals: Rosi Martell MD [Primary Care Provider] - Additional Instructions: Benadryl before bed and as needed for any continuous swelling Ice to the area - Billing Disposition and Condition Condition: STABLE Disposition: Home
== END 2019-02-15 13:33 | disposition home or self-care (01) ==
LOC: ED 11:57
DX: T63.441A Toxic effect of venom of bees, accidental (unintentional), initial encounter (principal); R60.9 Edema, unspecified; Y92.9 Unspecified place or not applicable; Z88.0 Allergy status to penicillin; J45.909 Unspecified asthma, uncomplicated; F17.210 Nicotine dependence, cigarettes, uncomplicated
CPT/HCPCS: 96372; 99282; A9270-GY; J1100

== ENCOUNTER 2019-04-02 19:31 | Emergency (ER) | payer BC ==
--- OUTSIDE RECORDS SUMMARY | 2019-04-02 19:37 | XMS REPORT | Continuity of Care Document ---
:1995 External Reference #:[id number] Author Name Cristian Partida M.D. (transmitted by agent of provider Rosaura Grullon ) Address [address] [place] [address] Care Team Providers Name Role Phone Rosi Martell MD - Internal Medicine Care Team Information Director Supply [phone] Problems Active Problems Provider Date Anxiety state Celio Espana M.D. Onset: 06/13/2017 Derangement of knee Celio Espana M.D. Onset: 06/13/2017 Temporomandibular joint disorder Celio Espana M.D. Onset: 06/13/2017 Asthma without status asthmaticus Celio Espana M.D. Onset: 03/06/2017 Migraine with typical aura Boogie Romero MD Onset: 05/14/2018 Social History Type Date Description Comments Sex Unknown ETOH Use Currently consumes alcohol ETOH Use Occasionally consumes alcohol Tobacco Use Start: Unknown Patient is a current smoker, smokes every day Recreational Drug Use Regularly uses Marijuana Tobacco Use Start: Unknown Heavy tobacco smoker (more than 10 cigarettes/day) Smoking Status Reviewed: 03/30/19 Heavy tobacco smoker (more than 10 cigarettes/day) Exercise Type/Frequency Exercises sporadically Allergies, Adverse Reactions, Alerts Active Allergies Reaction Severity Comments Date Amoxicillin childhood reaction 11/03/2012 Bactrim childhood reaction 11/03/2012 Medications Active Medications SIG Qnty Indications Ordering Provider Date Biktarvy Take 1 tablet 30tabs Z21 Penny Rudd 11/26/2018 50-200-25mg by mouth daily KARLEE Treadwell Tablets Naproxen 1 by mouth 90tabs M22.2x2 Richard Celaya, 10/08/2016 500mg twice a day as MD Tablets needed pain Ibuprofen 2 caps po prn Unknown 200mg Capsules Albuterol Sulfate Unknown Sumatriptan take 1 tablet Unknown Succinate by mouth if 50mg needed for Tablets Migraine, May Repeat In 2 Hours I History Medications Azithromycin take 2 tabs orally 2tabs Penny Blaire 11/19/2018 - 500mg x 1 (take this the KARLEE Treadwell 11/20/2018 Tablets same day you have your injection) Immunizations CPT Code Status Date Vaccine Lot # [id number] Given 03/30/2019 Pneumonia Vaccine [id number] Given 11/26/2018 Pneumococcal Conjugate Vaccine 13 Valent For [id number] Intramuscular Use Vital Signs Date Vital Result Comment 03/30/2019 10:21am Height 68 inches 5'8" Weight 142.50 lb Heart Rate 84 /min BP Systolic Sitting 118 mmHg BP Diastolic Sitting 80 mmHg Respiratory Rate 14 /min Body Temperature 98.1 F BMI (Body Mass Index) 21.7 kg/m2 12/29/2018 11:19am Height 68 inches 5'8" Weight 139.12 lb Heart Rate 84 /min BP Systolic Sitting 110 mmHg BP Diastolic Sitting 68 mmHg Respiratory Rate 14 /min Body Temperature 97.3 F BMI (Body Mass Index) 21.2 kg/m2 Results Test Date Facility Test Result H/L Range Note CBC Auto 03/23/2019 [facility] White Blood 6.2 10^3/uL Normal 3.5-10.[address] [place] [address] [phone] Red Blood Count 4.52 10^6/uL Normal 4.18-5.48 Hemoglobin 14.5 g/dL Normal 14.0-18.0 Hematocrit 42 % Normal 42-52 Mean Corpuscular Volume 92 fL Normal 80-94 Mean Corpuscular Hemoglobin 32 pg High 27-31 Mean Corpuscular HGB Conc 35 g/dL Normal 31-36 Red Cell Distribution Width 14 % Normal 10-15 Platelet Count 219 10^3/uL Normal 150-450 Mean Platelet Volume 8.4 fL Normal 7.4-10.4 Abs Neutrophils 3.3 10^3/uL Normal 1.5-7.7 Abs Lymphocytes 2.3 10^3/uL Normal 1.0-4.8 Abs Monocytes 0.5 10^3/uL Normal 0-0.8 Abs Eosinophils 0.1 10^3/uL Normal 0-0.6 Abs Basophils 0.0 10^3/uL Normal 0-0.2 Abs Nucleated RBC 0.0 10^3/uL Granulocyte % 53.0 % Lymphocyte % 37.7 % Monocyte % 8.0 % Eosinophil % 0.9 % Basophil % 0.4 % Nucleated Red Blood Cells % 0.0 Comp Metabolic 03/23/2019 [facility] Sodium 137 mmol/L Normal 135-[address] [place] [address] [phone] Potassium 4.2 mmol/L Normal 3.5-5.0 Chloride 105 mmol/L Normal 101-111 Co2 Carbon Dioxide 28 mmol/L Normal 22-32 Anion Gap 4 mmol/L Normal 2-11 Glucose 86 mg/dL Normal 70-100 Blood Urea Nitrogen 12 mg/dL Normal 6-24 Creatinine 0.73 mg/dL Normal 0.67-1.17 BUN/Creatinine Ratio 16.4 Normal 8-20 Calcium 9.3 mg/dL Normal 8.6-10.3 Total Protein 6.4 g/dL Normal 6.4-8.9 Albumin 4.4 g/dL Normal 3.2-5.2 Globulin 2.0 g/dL Normal 2-4 Albumin/Globulin Ratio 2.2 Normal 1-3 Total Bilirubin 0.70 mg/dL Normal 0.2-1.0 Alkaline Phosphatase 74 U/L Normal 34-104 Alt 19 U/L Normal 7-52 Ast 14 U/L Normal 13-39 Egfr Non- 130.9 >60 Egfr 158.4 >60 1 HIV-1 Rna 03/23/2019 [facility] HIV-1 Rna Undetected Undetected 2 QNT By PCR [address] (PCR) copies/[place] [address] [phone] CD4/CD8 03/23/2019 [facility] Absolute CD45 1.85 thou/mcL 0.82-2.84 T-Cell [address] [place] [address] [phone] % CD3 76 % 58-86 % CD4 35 % 32-64 % CD8 38 % 18-40 CD3 1400 cells/L 550-2202 CD4 655 cells/L 365-1437 CD8 699 cells/L 199-846 4/8 H/S Ratio 0.9 >=0.9 CD4 Reviewed By See Comment 3 Laboratory test 03/23/2019 [facility] Syphillis Igg Negative Negative finding [address] W/Reflex RPR [place], [place] [id number] [phone] GC/Chlamydia 12/29/2018 [facility] Chlamydia Negative Negative Amplified Rna [address] trachomatis Rna [place], [place] [address] [phone] Neisseria gonorrhoeae (GC) Rna Negative Negative Ctrach&Ngonorr Amplified Rna 12/29/2018 [facility] Source RECTAL [address] [place], [place] [id number] [phone] C. trach Amplified Rna Negative Negative 4 Source RECTAL N Gonorr Amplified Rna Negative Negative 5 Ctrach&Ngonorr Amplified Rna 12/29/2018 [facility] Source THROAT [address] [place], [place] [address] [phone] C. trach Amplified Rna Negative Negative 6 Source THROAT N Gonorr Amplified Rna Negative Negative 7 HIV-1 Rna QNT 12/22/2018 [facility] HIV-1 Rna <20 Abnormal Undetected 8 By PCR Sli [address] (PCR) copies/[place] [address] [phone] Ctrach&Ngonor 11/16/2018 [facility] Source THROAT r Amplified [address] [place] [address] [phone] C. trach Amplified Rna Negative Negative 9 Source THROAT N Gonorr Amplified Rna Negative Negative 10 Ctrach&Ngonorr Amplified Rna 11/16/2018 [facility] Source RECTAL [address] [place], [place] [address] [phone] C. trach Amplified Rna Negative Negative 11 Source RECTAL N Gonorr Amplified Rna Positive Abnormal Negative 12 GC/Chlamydia 11/16/2018 [facility] Chlamydia Negative Negative Amplified Rna [address] trachomatis Rna [place], [place] [address] [phone] Neisseria gonorrhoeae (GC) Rna Negative Negative Hepatitis B Vivienne 11/16/2018 [facility] Hepatitis B Immune Immune AB Titer [address] [place] [address] [phone] Hep B Surf AB Level 306.97 mIU/mL >12 Laboratory 11/16/2018 [facility] Hepatitis B Nonreactive Nonreactive test finding [address] [place] [address] [phone] Hepatitis C 11/16/2018 [facility] HCV Index 0.0 Index Antibody [address] [place] [address] [phone] Hepatitis C Antibody Nonreactive Nonreactive HIV-1 Genotypic 11/16/2018 [facility] HIV-1 Genotype Drug INTERP 13 pr-RT [address] [place] [address] [phone] Nucleoside RT Mutation See Comment 14 Abacavir SUSC Didanosine SUSC Emtricitabine SUSC Lamivudine SUSC Stavudine SUSC Tenofovir SUSC Zidovudine SUSC Nonnucleoside RT mutations See Comment 15 Efavirenz SUSC Etravirine SUSC Nevirapine SUSC Rilpivirine SUSC Protease Mutations See Comment 16 Atazanavir w/Ritonavir SUSC Darunavir w/Ritonavir SUS[facility] Fosamprenavir w/Ritonavir SUSC Indinavir w/Ritonavir SUSC Lopinavir w/Ritonavir SUSC Nelfinavir SUSC Saquinavir w/Ritonavir SUSC Tipranavir w/Ritonavir SUSC 17 CD4/CD8 11/16/2018 [facility] Absolute CD45 1.27 thou/mcL 0.82-2.84 T-Cell Count [address] [place] [address] [phone] CD3 83 % 58-86 % CD4 35 % 32-64 % CD8 45 % Abnormal 18-40 CD3 1060 cells/L 550-2202 CD4 443 cells/L 365-1437 CD8 572 cells/L 199-846 4/8 H/S Ratio 0.8 Abnormal >=0.9 CD4 Reviewed By See Comment 18 HIV-1 Rna QNT 11/16/2018 [facility] HIV-1 Rna [address] Abnormal Undetected 19 By PCR Sli [address] (PCR) copies/[place] [address] [phone] Laboratory 11/16/2018 [facility] Syphillis Negative Negative test finding [address] [place] [address] W/Reflex [phone] RPR 1 Because ethnic data is not always readily available, this report includes an eGFR for both -Americans and non- Americans. The National Kidney Disease Education Program (NKDEP) does not endorse the use of the MDRD equation for patients that are not between the ages of 18 and 70, are , have extremes of body size, muscle mass, or nutritional status, or are non- or non-. According to the National Kidney Foundation, irrespective of diagnosis, the stage of the disease is based on the level of kidney function: Stage Description GFR(mL/min/1.73 m(2)) 1 Kidney damage with normal or decreased GFR 90 2 Kidney damage with mild decrease in GFR 60-89 3 Moderate decrease in GFR 30-59 4 Severe decrease in GFR 15-29 5 Kidney failure <15 (or dialysis) 2 Result in log copies/mL is Undetected. ADDITIONAL INFORMATION The quantification range of this assay is 20 to 10,000,000 copies/mL (1.30 log to 7.00 log copies/mL). Testing was performed using the kristi HIV-1 test ([employer] with the kristi 6800 System. This test has been modified from the distributor sales consultant's instructions. Its performance characteristics were determined by [facility] in a manner consistent with CLIA requirements. This test has not been cleared or approved by the U.S. Food and Drug Administration. Test Performed by: [facility] [place] [address] Director Of Security: Yury Ashraf M.D. Ph.D.; CLIA# [id number] 3 RESULT: Reviewed by: Savage Forrester M.D. ADDITIONAL INFORMATION Reference values implemented November 03, 2012. This test was developed using an analyte specific reagent. Its performance characteristics were determined by [facility] in a manner consistent with CLIA requirements. This test has not been cleared or approved by the U.S. Food and Drug Administration. Test Performed by: [facility] - [place] [id number] Director Of Security: Yury Ashraf M.D. Ph.D.; CLIA# [id number] 4 ADDITIONAL INFORMATION This report is intended for use in clinical monitoring and management of patients. It is not intended for use in medical-legal applications. This test has been modified from the distributor sales consultant's instructions. Its performance characteristics were determined by [facility] in a manner consistent with CLIA requirements. This test has not been cleared or approved by the U.S. Food and Drug Administration. 5 ADDITIONAL INFORMATION This report is intended for use in clinical monitoring and management of patients. It is not intended for use in medical-legal applications. This test has been modified from the distributor sales consultant's instructions. Its performance characteristics were determined by [facility] in a manner consistent with CLIA requirements. This test has not been cleared or approved by the U.S. Food and Drug Administration. Test Performed by: [address] [address] 6 ADDITIONAL INFORMATION This report is intended for use in clinical monitoring and management of patients. It is not intended for use in medical-legal applications. This test has been modified from the distributor sales consultant's instructions. Its performance characteristics were determined by [facility] in a manner consistent with CLIA requirements. This test has not been cleared or approved by the U.S. Food and Drug Administration. 7 ADDITIONAL INFORMATION This report is intended for use in clinical monitoring and management of patients. It is not intended for use in medical-legal applications. This test has been modified from the distributor sales consultant's instructions. Its performance characteristics were determined by [facility] in a manner consistent with CLIA requirements. This test has not been cleared or approved by the U.S. Food and Drug Administration. Test Performed by: [facility] - [facility] [address] [place] [address] 8 Result in log copies/mL is <1.30. HIV-1 RNA is detected, but level present is <20 copies/mL (<1.30 log copies/mL). This assay cannot accurately quantify HIV-1 RNA below this level. ADDITIONAL INFORMATION The quantification range of this assay is 20 to 10,000,000 copies/mL (1.30 log to 7.00 log copies/mL). Testing was performed using the kristi HIV-1 test ([employer] with the kristi [employer] System. This test has been modified from the distributor sales consultant's instructions. Its performance characteristics were determined by [facility] in a manner consistent with CLIA requirements. This test has not been cleared or approved by the U.S. Food and Drug Administration. Test Performed by: [facility] - [facility] [address] [place] [address] 9 ADDITIONAL INFORMATION This report is intended for use in clinical monitoring and management of patients. It is not intended for use in medical-legal applications. This test has been modified from the distributor sales consultant's instructions. Its performance characteristics were determined by [facility] in a manner consistent with CLIA requirements. This test has not been cleared or approved by the U.S. Food and Drug Administration. 10 ADDITIONAL INFORMATION This report is intended for use in clinical monitoring and management of patients. It is not intended for use in medical-legal applications. This test has been modified from the distributor sales consultant's instructions. Its performance characteristics were determined by [facility] in a manner consistent with CLIA requirements. This test has not been cleared or approved by the U.S. Food and Drug Administration. Test Performed by: [facility] - [address] [address] 11 ADDITIONAL INFORMATION This report is intended for use in clinical monitoring and management of patients. It is not intended for use in medical-legal applications. This test has been modified from the distributor sales consultant's instructions. Its performance characteristics were determined by [facility] in a manner consistent with CLIA requirements. This test has not been cleared or approved by the U.S. Food and Drug Administration. 12 ADDITIONAL INFORMATION This report is intended for use in clinical monitoring and management of patients. It is not intended for use in medical-legal applications. This test has been modified from the distributor sales consultant's instructions. Its performance characteristics were determined by [facility] in a manner consistent with CLIA requirements. This test has not been cleared or approved by the U.S. Food and Drug Administration. Test Performed by: [facility] - [address] [address] 13 Interpretation of following results: RESIST= Resistance SUSC= No evidence of resistance OH= Possible resistance 14 RESULT: No relevant mutations detected 15 RESULT: No relevant mutations detected 16 RESULT: No relevant mutations detected 17 ADDITIONAL INFORMATION Testing was performed using a modification of the FDA-approved Independa HIV-1 Genotyping System, version 2.0 ([employer] [place], [place]), and results were based on distributor sales consultant's most recent FDA-approved interpretive guidelines. Results obtained by different assay methods should not be used interchangeably. This test has been modified from the distributor sales consultant's instructions. Its performance characteristics were determined by [facility] in a manner consistent with CLIA requirements. This test has not been cleared or approved by the U.S. Food and Drug Administration. Test Performed by: [facility] - [facility] [address] [place] [address] 18 RESULT: Reviewed by: Indiana Dias M.D., Beronica Vincent(KANCHAN) ADDITIONAL INFORMATION Reference values implemented November 03, 2012. This test was developed using an analyte specific reagent. Its performance characteristics were determined by [facility] in a manner consistent with CLIA requirements. This test has not been cleared or approved by the U.S. Food and Drug Administration. Test Performed by: [facility] - [address] [address] 19 Result in log copies/mL is 4.64. ADDITIONAL INFORMATION The quantification range of this assay is 20 to 10,000,000 copies/mL (1.30 log to 7.00 log copies/mL). Testing was performed using the kristi HIV-1 test ([employer] with the kristi [employer] System. This test has been modified from the distributor sales consultant's instructions. Its performance characteristics were determined by [facility] in a manner consistent with CLIA requirements. This test has not been cleared or approved by the U.S. Food and Drug Administration. Test Performed by: [facility] [address] [place] [address] Procedures Description No Information Available Medical Devices Description No Information Available Encounters Type Date Location Provider Dx Diagnosis Office Visit 03/30/2019 [facility] Shweta Segovia Z21 Asymptomatic human 10:30a Carri Partida M.D. immunodeficiency virus Diseases infection status Z79.899 Other chcf (current) drug therapy Office Visit 12/29/2018 [facility] Penny Rudd Z21 Asymptomatic human 11:30a For Infectious KARLEE Treadwell immunodeficiency Diseases virus infection status Z11.3 Encntr screen for infections w sexl mode of transmiss Z79.899 Other ocean transportation intermediary (current) drug therapy Office Visit 11/26/2018 [facility] Penny Rudd Z21 Asymptomatic human 11:30a For Infectious KARLEE Treadwell immunodeficiency Diseases virus infection status Z23 Encounter for immunization R19.7 Diarrhea, unspecified Office Visit 11/16/2018 [facility] Penny Rudd Z21 Asymptomatic human 12:00p For Infectious KARLEE Treadwell immunodeficiency Diseases virus infection status Z11.3 Encntr screen for infections w sexl mode of transmiss Assessments Date Code Description Provider 03/30/2019 Z21 Asymptomatic human immunodeficiency Cristian Partida M.D. virus [HIV] infection st 03/30/2019 Z79.899 Other ocean transportation intermediary (current) drug Cristian Partida M.D. therapy 12/29/2018 Z21 Asymptomatic human immunodeficiency Penny Treadwell , [employer] virus [HIV] infection st 12/29/2018 Z11.3 Encounter for screening for Penny Treadwell, [employer] infections with a predominantly 12/29/2018 Z79.899 Other chcf (current) drug Penny Treadwell, [employer] therapy 11/26/2018 Z21 Asymptomatic human immunodeficiency Penny Treadwell , [employer] virus [HIV] infection st 11/26/2018 Z23 Encounter for immunization Penny Treadwell, [employer] 11/26/2018 R19.7 Diarrhea, unspecified Penny Treadwell, [employer] 11/16/2018 Z21 Asymptomatic human immunodeficiency Penny Treadwell , [employer] virus [HIV] infection st 11/16/2018 Z11.3 Encounter for screening for Penny Treadwell, [employer] infections with a predominantly Plan of Treatment 03/30/2019 - Cristian Partida M.D.Z21 Asymptomatic human immunodeficiency virus infection statusComments:pneumovax today, flu shot (should be in next few weeks)Follow up:4 months w Penny 1 month RN visit for flu shotZ79.899 Other ocean transportation intermediary (current) drug therapy Functional Status Description No Information Available Mental Status Description No Information Available Referrals Description No Information Available
[2019-04-02 19:43] VITALS: BP 120/76
--- NOTE | 2019-04-02 20:04 | UC ---
Ear Complaint HPI - HPI Summary HPI Summary: Patient is a 23-year-old male that presents here with a 5 day history of bilateral sinus pressure and pain associated with nasal congestion and postnasal drip. He complains of bilateral ear pain with fluctuating hearing. He denies any fever or chills. He denies any chest pain or shortness of breath. - History of Current Complaint Chief Complaint: UCRespiratory Stated Complaint: EAR ACHE, COUGH Time Seen by Provider: 04/02/19 19:38 Hx Obtained From: Patient Onset/Duration: Gradual Onset, Lasting Days Severity Initially: Mild Severity Currently: Moderate Pain Intensity: 7 Pain Scale Used: 0-10 Numeric Aggravating Factors: Cold Alleviating Factors: Nothing Associated Signs/Symptoms: Positive: Hearing Loss, URI Symptoms - Allergies/Home Medications Allergies/Adverse Reactions: Allergies Allergy/AdvReac Type Severity Reaction Status Date / Time amoxicillin Allergy Unknown Verified 04/02/19 19:43 Reaction Details sulfamethoxazole Allergy Unknown Verified 04/02/19 19:43 [From Bactrim] Reaction Details trimethoprim [From Bactrim] Allergy Unknown Verified 04/02/19 19:43 Reaction Details Home Medications: Home Medications Ibuprofen 600 mg PO ONCE PRN 04/02/19 [History Confirmed 04/02/19] PMH/Surg Hx/FS Hx/Imm Hx Previously Healthy: Yes - HIV + Respiratory History: Asthma - Surgical History Surgical History: Yes Surgery Procedure, Year, and Place: Moles removed, anal condylomium - Family History Known Family History: Positive: Hypertension - Social History Alcohol Use: Occasionally Substance Use Type: Marijuana Substance Use Comment - Amount & Last Used: pt denies Smoking Status (MU): Light Every Day Tobacco Smoker Type: Cigarettes Amount Used/How Often: 1/2ppd Length of Time of Smoking/Using Tobacco: approx 2009 Have You Smoked in the Last Year: Yes Household Exposure Type: Cigarettes Review of Systems All Other Systems Reviewed And Are Negative: Yes Constitutional: Positive: Negative Skin: Positive: Negative Eyes: Positive: Negative ENT: Positive: Ear Ache - L>R, Nasal Discharge, Sinus Congestion Respiratory: Positive: Cough Cardiovascular: Positive: Negative Gastrointestinal: Positive: Negative Genitourinary: Positive: Negative Motor: Positive: Negative Neurovascular: Positive: Negative Musculoskeletal: Positive: Negative Neurological: Positive: Negative Psychological: Positive: Negative Physical Exam Triage Information Reviewed: Yes Appearance: Well-Appearing, No Pain Distress, Well-Nourished Vital Signs: Initial Vital Signs Temp 98.5 F 04/02/19 19:38 Pulse 91 04/02/19 19:38 Resp 20 04/02/19 19:38 BP 120/76 04/02/19 19:38 Pulse Ox 97 04/02/19 19:38 Vital Signs Reviewed: Yes Eyes: Positive: Conjunctiva Clear ENT: Positive: Pharyngeal erythema, Nasal congestion, Nasal drainage, TM bulging , TM red. Negative: Trismus, Muffled voice, Uvula midline Neck: Positive: Supple, Nontender, No Lymphadenopathy Respiratory: Positive: Lungs clear, Normal breath sounds, No respiratory distress Cardiovascular: Positive: RRR, No Murmur Abdomen Description: Positive: Nontender Musculoskeletal: Positive: ROM Intact, No Edema Neurological: Positive: Alert Psychological Exam: Normal Skin Exam: Normal Ear Complaint Course/Dx - Differential Dx/Diagnosis Provider Diagnosis: Otitis media, Rhinosinusitis Discharge ED - Sign-Out/Discharge Documenting (check all that apply): Patient Departure All imaging exams completed and their final reports reviewed: No Studies - Discharge Plan Condition: Stable Disposition: HOME Prescriptions: ceFUROXime TAB(*) [Ceftin TAB(*)] 250 mg PO BID #20 tab Fluticasone NASAL SPRAY 50MCG* [Flonase NASAL SPRAY 50MCG*] 2 spray BOTH NARES DAILY #1 btl Patient Education Materials: Ear Infection (ED) Referrals: Rosi Martell MD [Primary Care Provider] - - Billing Disposition and Condition Condition: STABLE Disposition: Home
== END 2019-04-02 19:59 | disposition home or self-care (01) ==
LOC: UCEAST 19:31
DX: H66.90 Otitis media, unspecified, unspecified ear (principal); J32.9 Chronic sinusitis, unspecified; Z88.0 Allergy status to penicillin; Z88.1 Allergy status to other antibiotic agents; Z21 Asymptomatic human immunodeficiency virus [HIV] infection status; F17.210 Nicotine dependence, cigarettes, uncomplicated
CPT/HCPCS: 99212; G0463

== ENCOUNTER 2019-07-27 14:01 | Emergency (ER) | payer BC ==
--- OUTSIDE RECORDS SUMMARY | 2019-07-27 14:07 | XMS REPORT | Continuity of Care Document ---
:1995 External Reference #:[id number] Author Name Penny Treadwell NP (transmitted by agent of provider Rosaura Grullon) Address [address] [place] [id number] Care Team Providers Name Role Phone Rosi Martell MD - Internal Medicine Care Team Information Handbook Writer Problems Active Problems Provider Date Anxiety state [...] (more than 10 cigarettes/day) Smoking Status Reviewed: 07/15/19 Heavy tobacco smoker (more than 10 cigarettes/day) [...] Tablets Migraine, May Repeat In 2 Hours Olegario Douglas TK 1 C PO D WF Unknown 40mg Capsules Immunizations CPT Code Status Date Vaccine Lot # 13729 Given 03/30/2019 Pneumonia Vaccine [id number] Given 11/26/2018 Pneumococcal Conjugate Vaccine 13 Valent For [id number] Intramuscular Use Vital Signs Date Vital Result Comment 07/15/2019 8:28am Height 68 inches 5'8" Weight 152.00 lb Heart Rate 82 /min BP Systolic Sitting 110 mmHg BP Diastolic Sitting 78 mmHg Respiratory Rate 14 /min Body Temperature 97.6 F BMI (Body Mass Index) 23.1 kg/m2 03/30/2019 10:21am Height 68 inches 5'8" Weight 142.50 lb Heart Rate 84 /min BP Systolic Sitting 118 mmHg BP Diastolic Sitting 80 mmHg Respiratory Rate 14 /min Body Temperature 98.1 F BMI (Body Mass Index) 21.7 kg/m2 Results Test Acquired Date Facility Test Result H/L Range Note CBC Auto 07/09/2019 [facility] White Blood 5.7 10^3/uL Normal 3.5-10.[address] [place] [address] [phone] Red Blood Count 4.66 10^6/uL Normal 4.18-5.48 Hemoglobin 15.2 g/dL Normal 14.0-18.0 Hematocrit 43 % Normal 42-52 Mean Corpuscular Volume 92 fL Normal 80-94 Mean Corpuscular Hemoglobin 33 pg High 27-31 Mean Corpuscular HGB Conc 35 g/dL Normal 31-36 Red Cell Distribution Width 13 % Normal 10-15 Platelet Count 250 10^3/uL Normal 150-450 Mean Platelet Volume 7.8 fL Normal 7.4-10.4 Abs Neutrophils 3.3 10^3/uL Normal 1.5-7.7 Abs Lymphocytes 1.9 10^3/uL Normal 1.0-4.8 Abs Monocytes 0.4 10^3/uL Normal 0-0.8 Abs Eosinophils 0.0 10^3/uL Normal 0-0.6 Abs Basophils 0.0 10^3/uL Normal 0-0.2 Abs Nucleated RBC 0.0 10^3/uL Granulocyte % 58.3 % Lymphocyte % 33.3 % Monocyte % 6.9 % Eosinophil % 0.8 % Basophil % 0.7 % Nucleated Red Blood Cells % 0.0 Comp Metabolic 07/09/2019 [facility] Sodium 139 mmol/L Normal 135-[address] [place] [address] [phone] Potassium 3.9 mmol/L Normal 3.5-5.0 Chloride 105 mmol/L Normal 101-111 Co2 Carbon Dioxide 27 mmol/L Normal 22-32 Anion Gap 7 mmol/L Normal 2-11 Glucose 96 mg/dL Normal 70-100 Blood Urea Nitrogen 9 mg/dL Normal 6-24 Creatinine 0.77 mg/dL Normal 0.67-1.17 BUN/Creatinine Ratio 11.7 Normal 8-20 Calcium 9.5 mg/dL Normal 8.6-10.3 Total Protein 7.1 g/dL Normal 6.4-8.9 Albumin 4.8 g/dL Normal 3.2-5.2 Globulin 2.3 g/dL Normal 2-4 Albumin/Globulin Ratio 2.1 Normal 1-3 Total Bilirubin 0.80 mg/dL Normal 0.2-1.0 Alkaline Phosphatase 101 U/L Normal 34-104 Alt 20 U/L Normal 7-52 Ast 19 U/L Normal 13-39 Egfr Non- 123.1 >60 Egfr 148.9 >60 1 HIV-1 Rna QNT 07/09/2019 [facility] HIV-1 Rna <20 Abnormal Undetected 2 By PCR [address] (PCR) copies/[place] [address] [phone] Laboratory 07/09/2019 [facility] Syphillis Negative Negative test finding [address] Igg W/[place] [address] RPR [phone] GC/Chlamydia 07/09/2019 [facility] GCCHL (SEE NOTE) [address] [place] [address] [phone] Chlamydia trachomatis Liz Negative Negative Neisseria gonorrhoeae (GC) Liz Negative Negative CBC Auto 03/23/2019 [facility] White Blood 6.2 10^3/uL Normal 3.5-10.[address] [place] [address] [phone] Red Blood Count 4.52 10^6/uL Normal 4.18-5.48 [...] Blood Cells % 0.0 Comp Metabolic 03/23/2019 [facility] Sodium 137 mmol/L Normal 135-[address] [place] [address] [phone] Potassium 4.2 mmol/L Normal 3.5-5.0 Chloride 105 [...] Egfr Non- 130.9 >60 Egfr 158.4 >60 4 HIV-1 Rna 03/23/2019 [facility] HIV-1 Rna Undetected Undetected 5 QNT By PCR [address] (PCR) copies/[place] [address] [phone] CD4/CD8 03/23/2019 [facility] Absolute CD45 1.85 thou/mcL 0.82-2.84 T-Cell [address] [place] [address] [phone] % CD3 76 % 58-86 % CD4 35 % 32-64 % CD8 38 % 18-40 CD3 1400 cells/L 550-2202 CD4 655 cells/L [phone] CD8 699 cells/L 199-846 4/8 H/S Ratio 0.9 >=0.9 CD4 Reviewed By See Comment 6 Laboratory test 03/23/2019 [facility] Syphillis Igg Negative Negative finding [address] W/[place] [address] [phone] 1 Because ethnic data is not always [...] dialysis) 2 Result in log copies/mL is <1.30. HIV-1 RNA is detected, but level present is <20 copies/mL (<1.30 log copies/mL). This assay cannot accurately quantify HIV-1 RNA below this level. ADDITIONAL INFORMATION The quantification range of this assay is 20 to 10,000,000 copies/mL (1.30 log to 7.00 log copies/mL). Testing was performed using the kristi HIV-1 test ([employer] with the kristi 6800 System. This test has been modified from the doll repairer's instructions. Its performance characteristics were determined by [facility] in a manner consistent with CLIA requirements. This test has not been cleared or approved by the U.S. Food and Drug Administration. Test Performed by: [facility] [address] [place] [address] Painting Contractor: Yury Ashraf M.D. Ph.D.; CLIA# [id number] 3 As with all diagnostic procedures, the laboratory results obtained should be used in conjunction with other clinical information available to the physician, including confirmation by another method, as applicable. 4 Because ethnic data is not always readily [...] 15-29 5 Kidney failure <15 (or dialysis) 5 Result in log copies/mL is Undetected. ADDITIONAL INFORMATION The quantification range of this assay is 20 to 10,000,000 copies/mL (1.30 log to 7.00 log copies/mL). Testing was performed using the kristi HIV-1 test ([employer] with the kristi 6800 System. This test has been modified from the doll repairer's instructions. Its performance characteristics were determined by [facility] in a manner consistent with CLIA requirements. This test has not been cleared or approved by the U.S. Food and Drug Administration. Test Performed by: [facility] [address] [place] [address] Painting Contractor: Yury Ashraf M.D. Ph.D.; CLIA# [id number] RESULT: Reviewed by: Savage Forrester M.D. ADDITIONAL INFORMATION Reference values implemented November 03, 2012. This test was developed using an analyte specific reagent. Its performance characteristics were determined by [facility] in a manner consistent with CLIA requirements. This test has not been cleared or approved by the U.S. Food and Drug Administration. Test Performed by: [facility] - [address] [address] Painting Contractor: Yury Ashraf M.D. Ph.D.; CLIA# [id number] Procedures Description No Information Available Medical Devices Description No Information Available Encounters Type Date Location Provider Dx Diagnosis Office Visit 07/12/2019 8:40a [facility] Albert Mondragon MD L70.0 Acne vulgaris L85.3 Xerosis cutis K13.0 Diseases of lips Z79.899 Other rn long term care (current) drug therapy Office Visit 06/03/2019 7:50a [facility] D[facility] Albert Mondragon MD L70.0 Acne vulgaris Z79.899 Other rn long term care (current) drug therapy Office Visit 03/30/2019 [facility] Cristian Segovia Z21 Asymptomatic human 10:30a For Carri Partida M.D. immunodeficiency virus Diseases infection status Z79.899 Other rn long term care (current) drug therapy Z23 Encounter for immunization Assessments Date Code Description Provider 07/15/2019 Z21 Asymptomatic human immunodeficiency Penny Treadwell NP virus [HIV] infection st 07/15/2019 Z79.899 Other rn long term care (current) drug Penny Treadwell NP therapy 07/15/2019 Z11.3 Encounter for screening for Penny Treadwell NP infections with a predominantly 07/12/2019 L70.0 Acne vulgaris Albert Mondragon MD 07/12/2019 L85.3 Xerosis cutis Albert Mondragon MD 07/12/2019 K13.0 Diseases of lips Albert Mondragon MD 07/12/2019 Z79.899 Other rn long term care (current) drug Albert Mondragon MD therapy 06/03/2019 L70.0 Acne vulgaris Albert Mondragon MD 06/03/2019 Z79.899 Other shelter (current) drug Albert Mondragon MD therapy 03/30/2019 Z21 Asymptomatic human immunodeficiency Cristian Partida M.D. virus [HIV] infection st 03/30/2019 Z79.899 Other shelter (current) drug Cristian Partida M.D. therapy 03/30/2019 Z23 Encounter for immunization Cristian Partida M.D. Plan of Treatment Future Appointment(s):11/04/2019 8:30 am - Penny Treadwell NP at [facility] For Infectious Ltnkhrgm48/02/2020 - Penny Treadwell NPZ21 Asymptomatic human immunodeficiency virus infection statusFollow up:4 [id number] Other rn long term care (current) drug xzzxmkaL16.3 Encntr screen for infections w sexl mode of transmissNew Labs:GC/Chlamydia Amplified Rna, Ordered : 07/15/19 Functional Status Description No Information Available Mental Status Description No Information Available Referrals Description No Information Available
[2019-07-27] MEDS ORDERED: NS 0.9% 1000 ML** 1,000 ML IV ONE (15:06)
[2019-07-27] MEDS ORDERED: Ondansetron INJ* 2 MG/ML VIAL IV ONE (15:11)
[2019-07-27 15:16] VITALS: BP 141/87
--- NOTE | 2019-07-27 15:38 | UC ---
General HPI - HPI Summary HPI Summary: 23yo male with PMHx significant for HIV and migraines presenting with c/o headache and nausea since 0800 that became worse and constant around 8276-5629. Notes hematemesis in the waiting room of the clinic before being brought back. Notes 5 episodes prior to arrival without blood. Patient states he "feels like his chest and abdomen are are fire." Denies anything like this in the past. Rates migraine 9/10 with photophobia. States last migraine 2 weeks ago. Denies recent illness. Denies fever and chills. Patient denies aggravating or alleviating factors. - History of Current Complaint Chief Complaint: UCHeadache Stated Complaint: HEADACHE, VOMITING Time Seen by Provider: 07/27/19 15:04 Hx Obtained From: Patient Onset/Duration: Gradual Onset, Lasting Hours Pain Intensity: 10 - Allergy/Home Medications Allergies/Adverse Reactions: Allergies Allergy/AdvReac Type Severity Reaction Status Date / Time amoxicillin Allergy Unknown Verified 07/27/19 14:11 Reaction Details sulfamethoxazole Allergy Unknown Verified 07/27/19 14:11 [From Bactrim] Reaction Details trimethoprim [From Bactrim] Allergy Unknown Verified 07/27/19 14:11 Reaction Details PMH/Surg Hx/FS Hx/Imm Hx Neurological History: Migraine Other History Of: HIV - Surgical History Surgical History: Yes Surgery Procedure, Year, and Place: Moles removed, anal condylomium - Family History Known Family History: Positive: Hypertension - Social History Alcohol Use: Occasionally Substance Use Type: Marijuana Substance Use Comment - Amount & Last Used: pt denies Smoking Status (MU): Light Every Day Tobacco Smoker Type: Cigarettes Amount Used/How Often: 1/2ppd Length of Time of Smoking/Using Tobacco: approx 2009 Have You Smoked in the Last Year: Yes Household Exposure Type: Cigarettes Review of Systems All Other Systems Reviewed And Are Negative: Yes Constitutional: Positive: Negative. Negative: Fever, Chills Eyes: Positive: Photophobia Respiratory: Positive: Negative Cardiovascular: Positive: Negative Gastrointestinal: Positive: Abdominal Pain, Vomiting - x5, hematesis x1, Nausea. Negative: Diarrhea Motor: Positive: Negative Musculoskeletal: Positive: Negative Neurological: Positive: Headache. Negative: Weakness, Paresthesia, Numbness Physical Exam Triage Information Reviewed: Yes Appearance: Ill-Appearing, Pain Distress Vital Signs: Initial Vital Signs Temp 97.3 F 07/27/19 14:07 Pulse 95 07/27/19 14:07 Resp 16 07/27/19 14:07 BP 136/98 07/27/19 14:07 Pulse Ox 100 07/27/19 14:07 Vital Signs Reviewed: Yes Eyes: Positive: Conjunctiva Clear ENT: Positive: Hearing grossly normal, Pharynx normal Neck: Positive: Supple Respiratory Exam: Normal Respiratory: Positive: Lungs clear, Normal breath sounds, No respiratory distress. Negative: Crackles, Rhonchi, Stridor, Wheezing Cardiovascular Exam: Normal Cardiovascular: Positive: RRR, No Murmur Abdomen Description: Positive: No Organomegaly, Soft. Negative: Nontender - epigastric tenderness to palpation, CVA Tenderness (R), CVA Tenderness (L), Distended, Guarding, McBurney's Point Tenderness Bowel Sounds: Positive: Present Neurological: Positive: Alert Psychological Exam: Normal Skin Exam: Normal - no erythema or ecchymosis Course/Dx - Course Course Of Treatment: Patient arrive with headache and large amount of hematemesis. Patient brought back and immediately had IV placed with NS and zofran started. EMS was also called right away. Patient VS normal and stable while awaiting EMS. Patient verbally agreed to be transferred via ambulance. Patient stable upon departure. I called [facility] and gave report to Shahana. - Diagnoses Provider Diagnosis: Hematemesis of unknown cause, Migraine Discharge ED - Sign-Out/Discharge Documenting (check all that apply): Patient Departure All imaging exams completed and their final reports reviewed: No Studies - Discharge Plan Condition: Stable Disposition: TRANS HIGHER LVL OF CARE FAC Referrals: Rosi Martell MD [Primary Care Provider] - - Billing Disposition and Condition Condition: STABLE Disposition: Trans Higher Lvl of Care Fac - Attestation Statements Provider Attestation: I was available for consult. This patient was seen by the MANDO. The patient was not presented to, seen by, or examined by me. -Venessa
== END 2019-07-27 15:29 | disposition short-term general hospital (02) ==
LOC: UCEAST 14:01
DX: K92.0 Hematemesis (principal); G43.909 Migraine, unspecified, not intractable, without status migrainosus; Z21 Asymptomatic human immunodeficiency virus [HIV] infection status; Z88.0 Allergy status to penicillin; Z88.2 Allergy status to sulfonamides; F17.210 Nicotine dependence, cigarettes, uncomplicated
CPT/HCPCS: 96374; 99213; G0463; J2405

== ENCOUNTER 2019-07-27 15:51 | Emergency (ER) | payer BC ==
[2019-07-27] MEDS ORDERED: NS 0.9% 1000 ML** 1,000 ML IV ONE (16:06)
[2019-07-27] MEDS ORDERED: Ketorolac INJ* 30 MG/ML 1 ML VIAL IV ONE (16:06)
[2019-07-27] MEDS ORDERED: Metoclopramide IV* 5 MG/ML 2 ML VIAL IV SLOW PU ONE (16:06)
--- NOTE | 2019-07-27 16:08 | ED ---
Headache - HPI Summary HPI Summary: This pt is a 23 Y/O M presenting to [facility] with a CC of a migraine, rated a 9/10 in severity, that started at 0830 and was intermittent until 1100 today when it became constant. He states that the pain is rated a 8/10 in severity. He also states 6 episodes of vomit; the last episode had bright red blood streaks. He states that his last migraine was a week or 2 prior to this episode. He also states that he is having photophobia. He states that he went to [facility] for care before the episode of hematemesis began. He states that he denies any recent fevers, chills, or neck pain. He also states that he has no aggravating or alleviating factors. He has a PMHx of migraines and HIV. - History Of Current Complaint Stated Complaint: MIGRAIN AND VOMITING PER EMS Time Seen by Provider: 07/27/19 15:57 Hx Obtained From: Patient Last Known Well Date: 07/26/2019 Onset/Duration: Sudden Onset, Still Present Initially Headache Was: Severe Currently Pain Is: Current Pain Scale(0-10)= - 9/10 Timing: Constant Character: Migraine Location of Headache: Diffuse Associated Signs And Symptoms: Negative - fevers, chills, or neck pain., Nausea , Vomiting, Visual Changes - photophobia - Allergies/Home Medications Allergies/Adverse Reactions: Allergies Allergy/AdvReac Type Severity Reaction Status Date / Time amoxicillin Allergy Unknown Verified 07/27/19 14:11 Reaction Details sulfamethoxazole Allergy Unknown Verified 07/27/19 14:11 [From Bactrim] Reaction Details trimethoprim [From Bactrim] Allergy Unknown Verified 07/27/19 14:11 Reaction Details Home Medications: Home Medications Isotretinoin [Claravis] 60 mg PO DAILY 07/27/19 [History Confirmed 07/27/19] PMH/Surg Hx/FS Hx/Imm Hx Previously Healthy: Yes Endocrine/Hematology History: Denies: Hx Diabetes, Hx Thyroid Disease Cardiovascular History: Denies: Hx Hypertension, Hx Pacemaker/ICD Respiratory History: Reports: Hx Asthma - USES AN INHALER Denies: Hx Chronic Obstructive Pulmonary Disease (COPD) GI History: Denies: Hx Ulcer History: Denies: Hx Dialysis, Hx Renal Disease Psychiatric History: Denies: Hx Panic Disorder - Cancer History Hx Chemotherapy: No Hx Radiation Therapy: No - Surgical History Surgical History: Yes Surgery Procedure, Year, and Place: Moles removed, anal condylomium - Immunization History Immunizations Up to Date: Yes Infectious Disease History: Yes Infectious Disease History: Reports: Hx Human Immunodeficiency Virus (HIV) - treated, undetectible Denies: Hx Clostridium Difficile, Hx Hepatitis, Hx of Known/Suspected MRSA, Hx Shingles, Hx Tuberculosis, Hx Known/Suspected VRE, Hx Known/Suspected VRSA, History Other Infectious Disease, Traveled Outside the [place] in Last 30 Days - Family History Known Family History: Positive: Hypertension - Social History Occupation: Employed Full-time Lives: Alone Alcohol Use: Occasionally Hx Substance Use: Yes Substance Use Type: Reports: Marijuana Substance Use Comment - Amount & Last Used: pt denies Hx Tobacco Use: Yes Smoking Status (MU): Light Every Day Tobacco Smoker Type: Cigarettes Amount Used/How Often: 1/2ppd Length of Time of Smoking/Using Tobacco: approx 2009 Have You Smoked in the Last Year: Yes Review of Systems Negative: Fever, Chills Positive: Photophobia Positive: Vomiting, Nausea, Other - hematemesis Positive: Headache - migraine All Other Systems Reviewed And Are Negative: Yes Physical Exam - Summary Physical Exam Summary: Constitutional: Well-developed, Well-nourished, Alert. (-) Distressed Skin: Warm, Dry HENT: Normocephalic; Atraumatic Eyes: Conjunctiva normal Neck: Musculoskeletal ROM normal neck. (-) JVD, (-) Stridor, (-) Nuchal rigidity Cardio: Rhythm regular, rate normal, Heart sounds normal; Intact distal pulses; Radial pulses are 2+ and symmetric. (-) Murmur Pulmonary/Chest wall: Effort normal. (-) Respiratory distress, (-) Wheezes, (-) Rales Abd: Soft, (-) tenderness, (-) Distension, (-) Guarding, (-) Rebound Musculoskeletal: (-) Edema Lymph: (-) Cervical adenopathy Neuro: Alert, Oriented x3 Psych: Mood and affect Normal Triage Information Reviewed: Yes Vital Signs On Initial Exam: Initial Vitals Temp Pulse Resp BP Pulse Ox 97.6 F 76 18 129/85 98 07/27/19 15:56 07/27/19 15:56 07/27/19 15:56 07/27/19 15:56 07/27/19 15:56 Vital Signs Reviewed: Yes Procedures - Sedation Patient Received Moderate/Deep Sedation with Procedure: No Diagnostics - Vital Signs Vital Signs Temp Pulse Resp BP Pulse Ox 07/27/19 15:56 97.6 F 76 18 129/85 98 - Laboratory Result Diagrams: 07/27/19 15:20 07/27/19 15:20 Lab Statement: Any lab studies that have been ordered have been reviewed, and results considered in the medical decision making process. - Radiology CXR Radiology Interpretation Completed By: ED Physician, Radiologist Summary of Radiographic Findings: No active cardiopulmonary disease is noted. ED physician has reviewed this report. Re-Evaluation - Re-Evaluation First Eval Re-Evaluation Time: 17:00 Change: Improved - patient reports headache improving. Hb stable. CXR w/o abnormality. Headache Course/Dx - Course Course Of Treatment: 23 y/o male w hx migraines p/w headache. - History of headaches of similar type. This is not the worst headache patient has had, and no additional features today to suggest need for further workup on a truly emergent basis (imaging, LP, etc). Will try symptomatic relief and reassess. Does have hx HIV but well controlled, HIV viral load undetectable. Low suspicion for infectious pathology. check CBC and CXR given reported hematemesis - Diagnoses Provider Diagnoses: Migraine, Hematemesis Discharge ED - Sign-Out/Discharge Documenting (check all that apply): Patient Departure - discharge - Discharge Plan Condition: Stable Disposition: HOME Patient Education Materials: Migraine Headache (ED) Referrals: Rosi Martell MD [Primary Care Provider] - 2 Days Additional Instructions: You were seen in the emergency department for migraine headache. Your labs showed a stable hemoglobin. Please follow up with your primary care doctor in next 2-3 days and return to emergency department for worsening headaches, fevers, confusion, or concerning symptoms. It was a pleasure taking care of you today. - Billing Disposition and Condition Condition: STABLE Disposition: Home - Attestation Statements Document Initiated by Scribe: Yes Documenting Scribe: Alejandro Valerio Provider For Whom Scribe is Documenting (Include Credential): Hoang Sánchez MD Scribe Attestation: Alejandro Melvin, scribed for Hoang Sánchez MD on 07/27/19 at 1828. Scribe Documentation Reviewed: Yes Provider Attestation: The documentation as recorded by the scribeAlejandro accurately reflects the service I personally performed and the decisions made by me, Hoang Sánchez MD Status of Scribe Document: Viewed
[2019-07-27 16:28] LABS: ABS Eosinophils 0.1 10^3/ul (0-0.6); ABS Lymphocytes 1.3 10^3/ul (1.0-4.8); ABS Monocytes 0.4 10^3/ul (0-0.8); ABS Neutrophils 7.6 10^3/ul (1.5-7.7); Eosinophil % 0.5 %; Hematocrit 46 % (42-52); Mean Corpuscular HGB Conc 35 g/dL (31-36); Mean Corpuscular Hemoglobin 32 pg (27-31); Mean Corpuscular Volume 93 fL (80-94); Mean Platelet Volume 8.2 fL (7.4-10.4); Platelet Count 258 10^3/uL (150-450); Red Blood Count 4.97 10^6 /uL (4.18-5.48); Red Cell Distribution Width 13 % (10-15); White Blood Count 9.3 10^3/uL (3.5-10.8)
[2019-07-27 16:41] LABS: Albumin 4.9 g/dL (3.2-5.2); Albumin/Globulin Ratio 1.8 (1-3); BUN/Creatinine Ratio 11.8 (8-20); Calcium 9.9 mg/dL (8.6-10.3); EGFR African American 151.2 (>60); Globulin 2.7 g/dL (2-4); Potassium 3.6 mmol/L (3.5-5.0); Total Protein 7.6 g/dL (6.4-8.9)
[2019-07-27 17:54] VITALS: BP 117/80
== END 2019-07-27 17:53 | disposition home or self-care (01) ==
LOC: ED 15:51
DX: R51 Headache (principal); K92.0 Hematemesis; I10 Essential (primary) hypertension; F17.210 Nicotine dependence, cigarettes, uncomplicated
CPT/HCPCS: 36415; 71046; 80053; 85025; 96374; 96375; 99282; J1885; J2765

== ENCOUNTER 2019-09-18 17:44 | Emergency (ER) | payer BC ==
[2019-09-18 18:00] VITALS: BP 120/75
--- NOTE | 2019-09-18 18:35 | UC ---
Knee Pain HPI - HPI Summary HPI Summary: DEVELOPED RIGHT ANTERIOR KNEE PAIN, REDNESS AND SWELLING YESTERDAY. DENIES ANY INJURY OR TRAUMA TO THE AREA. NO PREVIOUS INJURY TO THAT KNEE. PAIN IS WORSE WITH WEIGHTBEARING OR ANY MOVEMENT AT THE KNEE JOINT. PATIENT DENIES ANY FEVER. - History of Current Complaint Chief Complaint: UCLowerExtremity Stated Complaint: R KNEE PAIN Time Seen by Provider: 09/18/19 18:10 Hx Obtained From: Patient Onset/Duration: Gradual Onset, Lasting Days - 1 DAY, Still Present Severity Initially: Moderate Severity Currently: Moderate Pain Intensity: 6 Pain Scale Used: 0-10 Numeric Character: Sharp, Aching Aggravating Factor(s): Movement, Weight Bearing Alleviating Factor(s): Nothing Associated Signs And Symptoms: Positive: Swelling, Redness Able to Bear Weight: Yes - WITH PAIN - Allergies/Home Medications Allergies/Adverse Reactions: Allergies Allergy/AdvReac Type Severity Reaction Status Date / Time amoxicillin Allergy Unknown Verified 09/18/19 18:00 Reaction Details sulfamethoxazole Allergy Unknown Verified 09/18/19 18:00 [From Bactrim] Reaction Details trimethoprim [From Bactrim] Allergy Unknown Verified 09/18/19 18:00 Reaction Details Home Medications: Home Medications Bictegrav/Emtricit/Tenofov Ala [Biktarvy 50-200-25 mg Tablet] 1 tab PO DAILY 11/29 [History Confirmed 09/18/19] Ibuprofen 600 mg PO ONCE PRN 04/02/19 [History Confirmed 09/18/19] Isotretinoin [Claravis] 60 mg PO DAILY 07/27/19 [History Confirmed 09/18/19] PMH/Surg Hx/FS Hx/Imm Hx Respiratory History: Asthma Other History Of: HIV - Surgical History Surgical History: Yes Surgery Procedure, Year, and Place: Moles removed, anal condylomium - Family History Known Family History: Positive: Hypertension - Social History Alcohol Use: Occasionally Substance Use Type: Marijuana Substance Use Comment - Amount & Last Used: pt denies Smoking Status (MU): Light Every Day Tobacco Smoker Type: Cigarettes Amount Used/How Often: 1/2ppd Length of Time of Smoking/Using Tobacco: approx 2009 Have You Smoked in the Last Year: Yes Household Exposure Type: Cigarettes Review of Systems All Other Systems Reviewed And Are Negative: Yes Constitutional: Positive: Negative Skin: Positive: Other - RIGHT KNEE ERYTHEMA Respiratory: Positive: Negative Cardiovascular: Positive: Negative Gastrointestinal: Positive: Negative Musculoskeletal: Positive: Arthralgia, Decreased ROM, Edema Physical Exam Triage Information Reviewed: Yes Appearance: Well-Appearing, Well-Nourished, Pain Distress - MODERATE Vital Signs: Initial Vital Signs Temp 99.0 F 09/18/19 17:57 Pulse 99 09/18/19 17:57 Resp 18 09/18/19 17:57 BP 120/75 09/18/19 17:57 Pulse Ox 99 09/18/19 17:57 Vital Signs Reviewed: Yes Eyes: Positive: Conjunctiva Clear ENT: Positive: Hearing grossly normal Neck: Positive: Supple Respiratory: Positive: No respiratory distress, No accessory muscle use Cardiovascular: Positive: Tachycardia Abdomen Description: Positive: Soft Musculoskeletal: Positive: ROM Limited @ - RIGHT KNEE, Edema @ - MILD EDEMA RIGHT KNEE, Other: - EXTREMELY TTP RIGHT KNEE QUADRICEPS TENDON. MILDLY TENDER PATELLAR LIGAMENT. KNEE EXAM INCOMPLETE DUE TO LEVEL OF PT DISCOMFORT Neurological: Positive: Alert Psychological: Positive: Age Appropriate Behavior Skin: Positive: Other - RIGHT KNEE ERYTHEMATOUS AND WARM TO TOUCH Diagnostics - Radiology RIGHT KNEE XRAYS Radiology Interpretation Completed By: ED Physician Summary of Radiographic Findings: NO FRACTURE Knee Pain Course/Dx - Course Course Of Treatment: PATIENT PRESENTS WITH 1 DAY OF EXQUISITE RIGHT KNEE PAIN. NO TRAUMA OR PREVIOUS INJURY. ON EXAM KNEE IS SLIGHTLY SWOLLEN BUT DISTINCTLY RED AND WARM. PATIENT HAS SIGNIFICANT DISCOMFORT WITH ANY MOVEMENT AT THE KNEE JOINT. HE IS BORDERLINE TACHYCARDIC IN THE HIGH 99S. NO FEVER. PATIENT TAKES BIKTARVY FOR HIV AND ISOTRETINOIN WHICH CAN CAUSE JOINT PROBLEMS AND AFFECT THE BLOOD COUNT. PATIENT REQUIRES A HIGHER LEVEL OF SERVICE THAN WHAT IS AVAILABLE IN THE URGENT CARE. TO THE [facility] ER BY PRIVATE C - Differential Dx/Diagnosis Provider Diagnosis: Right knee pain - Physician Notifications Discussed Patient Care With: Elder Guerrero - TO [facility] ER BY PRIVATE CAR Time Discussed With Above Provider: 19:15 Instructed by Provider To: MD Will See In ED Discharge ED - Sign-Out/Discharge Documenting (check all that apply): Patient Departure All imaging exams completed and their final reports reviewed: No - Discharge Plan Condition: Stable Disposition: TRANS HIGHER [facility] OF CARE FAC Patient Education Materials: Swollen Knee Joint (ED) Referrals: Rosi Martell MD [Primary Care Provider] - If Needed Additional Instructions: GIVEN THE RAPIDITY OF THE ONSET OF YOUR SYMPTOMS AND THE SIGNIFICANT AMOUNT OF PAIN YOU HAVE, I RECOMMEND YOU GO DIRECTLY TO THE [facility] ER FROM HERE FOR FURTHER EVALUATION OF YOUR RED, HOT, SWOLLEN KNEE. - Billing Disposition and Condition Condition: STABLE Disposition: Trans Higher Lvl of Care Fac
--- NOTE | 2019-09-19 07:35 | UC ---
- Progress Note Progress Note: Final x-ray report reviewed X-rays of the right knee:TECHNIQUE: 4 views of the right knee were obtained. FINDINGS: The soft tissues are unremarkable. The bone mineralization is within normal limits. No fracture is identified. Anatomic alignment is maintained. The joint spaces are preserved. IMPRESSION: No fracture identified. Wet read correct Patient was transferred to ER via private car for further evaluation. No change in plan Course/Dx - Diagnoses Provider Diagnoses: Right knee pain - Provider Notifications Time Discussed With Above Provider: 19:15 Instructed by Provider To: MD Will See In ED Discharge ED - Sign-Out/Discharge Documenting (check all that apply): Post-Discharge Follow Up All imaging exams completed and their final reports reviewed: Yes - Discharge Plan Condition: Stable Disposition: TRANS HIGHER LVL OF CARE FAC Patient Education Materials: Swollen Knee Joint (ED) Referrals: Rosi Martell MD [Primary Care Provider] - If Needed Additional Instructions: GIVEN THE RAPIDITY OF THE ONSET OF YOUR SYMPTOMS AND THE SIGNIFICANT AMOUNT OF PAIN YOU HAVE, I RECOMMEND YOU GO DIRECTLY TO [place] [facility] [place] HERE FOR FURTHER EVALUATION OF YOUR RED, HOT, SWOLLEN KNEE. - Billing Disposition and Condition Condition: STABLE Disposition: Trans Higher Lvl of Care Fac
== END 2019-09-18 19:18 | disposition short-term general hospital (02) ==
LOC: UCEAST 17:44
DX: M25.561 Pain in right knee (principal); J45.909 Unspecified asthma, uncomplicated; F17.210 Nicotine dependence, cigarettes, uncomplicated; Z88.0 Allergy status to penicillin; Z88.2 Allergy status to sulfonamides
CPT/HCPCS: 99212; G0463

== ENCOUNTER 2019-09-18 19:33 | Emergency (ER) | payer BC ==
--- NOTE | 2019-09-18 20:58 | ED ---
Lower Extremity - HPI Summary HPI Summary: 23 year old M arriving via private car from [facility] to [facility] complains of right knee pain starting yesterday 09/16. Patient woke up this morning and the pain was worse. He is unable to bend his right knee. He reports right knee swelling. No recent fall/injury/trauma. He denies right hip, ankle, calf, thigh pain. Patient denies fever, chills, abdominal pain. No recent illness. The patient rates the pain 7/10 in severity. Symptoms aggravated by bending his right leg and weight bearing. Symptoms alleviated by acetaminophen last taken earlier today. He had negative x-rays done at . He was not given any medications at . No hx right knee pain. Hx Lloyd's cyst in left knee. Medications reviewed. Allergies noted. Home Medications Medication Instructions Recorded Confirmed Type Bictegrav/Emtricit/Tenofov Ala 1 tab PO DAILY 02/15/19 09/18/19 History [Biktarvy 50-200-25 mg Tablet] Ibuprofen 600 mg PO ONCE PRN 04/02/19 09/18/19 History Isotretinoin [Claravis] 60 mg PO DAILY 07/27/19 09/18/19 History - History of Current Complaint Chief Complaint: EDExtremityLower Stated Complaint: PAIN IN RIGHT KNEE Time Seen by Provider: 09/18/19 20:51 Hx Obtained From: Patient Onset of Pain: Days - 2 Onset/Duration: Still Present Severity Initially: Mild Severity Currently: Moderate Pain Intensity: 7 Pain Scale Used: 0-10 Numeric Timing: Constant Location: Is Discrete @ - right knee Aggravating Factor(s): Weight Bearing, Other - bending the right knee Alleviating Factor(s): OTC Meds - acetaminophen Able to Bear Weight: No - Allergies/Home Medications Allergies/Adverse Reactions: Allergies Allergy/AdvReac Type Severity Reaction Status Date / Time amoxicillin Allergy Unknown Verified 09/18/19 19:36 Reaction Details sulfamethoxazole Allergy Unknown Verified 09/18/19 19:36 [From Bactrim] Reaction Details trimethoprim [From Bactrim] Allergy Unknown Verified 09/18/19 19:36 Reaction Details Home Medications: Home Medications Bictegrav/Emtricit/Tenofov Ala [Biktarvy 50-200-25 mg Tablet] 1 tab PO DAILY 11/29 [History Confirmed 09/18/19] Ibuprofen 600 mg PO ONCE PRN 04/02/19 [History Confirmed 09/18/19] Isotretinoin [Claravis] 60 mg PO DAILY 07/27/19 [History Confirmed 09/18/19] PMH/Surg Hx/FS Hx/Imm Hx Endocrine/Hematology History: Denies: Hx Diabetes, Hx Thyroid Disease Cardiovascular History: Denies: Hx Hypertension, Hx Pacemaker/ICD Respiratory History: Reports: Hx Asthma - USES AN INHALER Denies: Hx Chronic Obstructive Pulmonary Disease (COPD) - Cancer History Hx Chemotherapy: No Hx Radiation Therapy: No - Surgical History Surgery Procedure, Year, and Place: Moles removed, anal condylomium Infectious Disease History: Yes Infectious Disease History: Reports: Hx Human Immunodeficiency Virus (HIV) - treated, undetectible Denies: Hx Clostridium Difficile, Hx Hepatitis, Hx of Known/Suspected MRSA, Hx Shingles, Hx Tuberculosis, Hx Known/Suspected VRE, Hx Known/Suspected VRSA, History Other Infectious Disease, Traveled Outside the [place] in Last 30 Days - Family History Known Family History: Positive: Hypertension - Social History Alcohol Use: Occasionally Hx Substance Use: Yes Substance Use Type: Reports: Marijuana Substance Use Comment - Amount & Last Used: pt denies Hx Tobacco Use: Yes Smoking Status (MU): Light Every Day Tobacco Smoker Type: Cigarettes Amount Used/How Often: 1/2ppd Length of Time of Smoking/Using Tobacco: approx 2009 Have You Smoked in the Last Year: Yes Review of Systems Negative: Fever, Chills Negative: Abdominal Pain Musculoskeletal: Negative - right hip, ankle, calf, thigh pain Positive: Other - right knee pain, right knee swelling All Other Systems Reviewed And Are Negative: Yes Physical Exam - Summary Physical Exam Summary: Constitutional: Well-developed, Well-nourished, Alert. (-) Distressed Skin: Warm, Dry HENT: Normocephalic; Atraumatic Eyes: Conjunctiva normal Neck: Musculoskeletal ROM normal neck. (-) JVD, (-) Stridor, (-) Tracheal deviation Cardio: Rhythm regular, rate normal, Heart sounds normal; Intact distal pulses; The pedal pulses are 2+ and symmetric. Radial pulses are 2+ and symmetric. (-) Murmur Pulmonary/Chest wall: Effort normal. (-) Respiratory distress, (-) Wheezes, (-) Rales Abd: Soft, (-) tenderness, (-) Distension, (-) Guarding, (-) Rebound Musculoskeletal: He has focal tenderness over the quadriceps tendon. No swelling or erythema. Lymph: (-) Cervical adenopathy Neuro: Alert, Oriented x3 Psych: Mood and affect Normal Triage Information Reviewed: Yes Vital Signs On Initial Exam: Initial Vitals Temp Pulse Resp BP Pulse Ox 98.4 F 94 15 127/91 99 09/18/19 19:35 09/18/19 19:35 09/18/19 19:35 09/18/19 19:35 09/18/19 19:35 Vital Signs Reviewed: Yes Procedures - Sedation Patient Received Moderate/Deep Sedation with Procedure: No Diagnostics - Vital Signs Vital Signs Temp Pulse Resp BP Pulse Ox 09/18/19 19:35 98.4 F 94 15 127/91 99 - Laboratory Result Diagrams: 09/18/19 21:02 09/18/19 21:02 Lab Statement: Any lab studies that have been ordered have been reviewed, and results considered in the medical decision making process. Lower Extremity Course/Dx - Course Course Of Treatment: 23 y/o M coming from c/o right knee pain starting yesterday 09/16 and right knee swelling starting today 09/17. He is unable to bend his right knee or bear weight. No recent fall/injury/trauma. He had negative x- ray done at . He was not given any medications at . He has been taking acetaminophen. No hx right knee pain. Upon physical exam, he has focal tenderness over the quadriceps tendon. No swelling or erythema. Bloodwork results with no significant abnormalities. In the ED course, the patient was given Toradol. The patient feels better. Patient will be discharged home with follow up from orthopedics in 2-3 days. Patient was instructed to return to Emergency Department for new or worsening symptoms. Patient understands and is agreeable to this plan. - Diagnoses Provider Diagnoses: Quadriceps tendinitis Discharge ED - Sign-Out/Discharge Documenting (check all that apply): Patient Departure - Discharge Plan Condition: Stable Disposition: HOME Patient Education Materials: Tendinitis (ED) Referrals: Johnathan Nuno MD [Medical Doctor] - 2 Days Additional Instructions: Please follow up with Dr. Nuno, orthopedics, in 2-3 days. Return to the Emergency Department for changing or worsening symptoms. - Billing Disposition and Condition Condition: STABLE Disposition: Home - Attestation Statements Document Initiated by Scribe: Yes Documenting Scribe: Mariely Briseno Provider For Whom Scribe is Documenting (Include Credential): Colt Mchugh DO Scribe Attestation: IMariely, scribed for Colt Mchugh DO on 09/19/19 at 1003. Scribe Documentation Reviewed: Yes Provider Attestation: The documentation as recorded by the scribeMariely accurately reflects the service I personally performed and the decisions made by , Colt Mchugh DO Status of Scribe Document: Viewed
[2019-09-18 21:11] LABS: ABS Basophils 0.1 10^3/ul (0-0.2); ABS Eosinophils 0.1 10^3/ul (0-0.6); ABS Monocytes 0.6 10^3/ul (0-0.8); ABS Neutrophils 4.7 10^3/ul (1.5-7.7); Eosinophil % 0.8 %; Hematocrit 45 % (42-52); Lymphocyte % 35.7 %; Mean Corpuscular HGB Conc 35 g/dL (31-36); Mean Corpuscular Hemoglobin 33 pg (27-31); Mean Corpuscular Volume 92 fL (80-94); Mean Platelet Volume 8.2 fL (7.4-10.4); Nucleated Red Blood Cells % 0.1; Platelet Count 239 10^3/uL (150-450); Red Blood Count 4.91 10^6 /uL (4.18-5.48); Red Cell Distribution Width 13 % (10-15); White Blood Count 8.4 10^3/uL (3.5-10.8)
[2019-09-18] MEDS ORDERED: Ketorolac *IM* INJ* 60 MG/2 ML VIAL IM ONE (21:14)
[2019-09-18 21:28] LABS: ALT 21 U/L (7-52); AST 23 U/L (13-39); Albumin 4.6 g/dL (3.2-5.2); Albumin/Globulin Ratio 1.7 (1-3); Alkaline Phosphatase 104 U/L (34-104); Anion Gap 6 mmol/L (2-11); BUN/Creatinine Ratio 19.8 (8-20); Blood Urea Nitrogen 16 mg/dL (6-24); C Reactive Protein < 1.00 mg/L (<8.01); CO2 Carbon Dioxide 25 mmol/L (22-32); Calcium 9.7 mg/dL (8.6-10.3); Chloride 105 mmol/L (101-111); EGFR African American 140.5 (>60); EGFR Non-African American 116.1 (>60); Globulin 2.7 g/dL (2-4); Glucose 89 mg/dL (70-100); Potassium 4.3 mmol/L (3.5-5.0); Sodium 136 mmol/L (135-145); Total Protein 7.3 g/dL (6.4-8.9)
[2019-09-18 21:53] VITALS: BP 124/83
== END 2019-09-18 21:52 | disposition home or self-care (01) ==
LOC: ED 19:33
DX: M76.899 Other specified enthesopathies of unspecified lower limb, excluding foot (principal); J45.909 Unspecified asthma, uncomplicated; Z79.51 Long term (current) use of inhaled steroids; Z21 Asymptomatic human immunodeficiency virus [HIV] infection status; Z88.0 Allergy status to penicillin; Z88.2 Allergy status to sulfonamides; F17.210 Nicotine dependence, cigarettes, uncomplicated
CPT/HCPCS: 36415; 80053; 85025; 85652; 86140; 96372; 99282; J1885

== ENCOUNTER 2019-10-13 09:53 | Emergency (ER) | payer BC, OTHER ==
--- NOTE | 2019-10-13 10:21 | UC ---
Skin Complaint HPI - HPI Summary HPI Summary: 23 yo male presents with rectal pain. He tells me that for the last 3 days he has had rectal pain that is worse with having a BM. He feels a small bump on his anus that is tender. He has had hemorrhoids in the past and this feels the same, but others have self resolved. He denies blood in stool or abdominal pain. No fevers. - History of Current Complaint Time Seen by Provider: 10/13/19 10:19 Stated Complaint: RECTAL PAIN Hx Obtained From: Patient Onset/Duration: Gradual Onset Onset Severity: Moderate Current Severity: Moderate Pain Intensity: 5 Pain Scale Used: 0-10 Numeric - Allergy/Home Medications Allergies/Adverse Reactions: Allergies Allergy/AdvReac Type Severity Reaction Status Date / Time amoxicillin Allergy Unknown Verified 10/13/19 10:27 Reaction Details sulfamethoxazole Allergy Unknown Verified 10/13/19 10:27 [From Bactrim] Reaction Details trimethoprim [From Bactrim] Allergy Unknown Verified 10/13/19 10:27 Reaction Details Home Medications: Home Medications Bictegrav/Emtricit/Tenofov Ala [Biktarvy 50-200-25 mg Tablet] 1 tab PO DAILY 11/29 [History Confirmed 10/13/19] Isotretinoin [Claravis] 60 mg PO DAILY 07/27/19 [History Confirmed 10/13/19] Hydrocortisone 1% CREAM* [Hytone Cream 1%*] 1 applic TOPICAL BID #1 tube [Rx] PMH/Surg Hx/FS Hx/Imm Hx - Additional Past Medical History Additional PMH: HIV Other History Of: HIV - Surgical History Surgical History: Yes Surgery Procedure, Year, and Place: Moles removed, anal condylomium - Family History Known Family History: Positive: Hypertension - Social History Lives: With Family Alcohol Use: Occasionally Substance Use Type: Marijuana Substance Use Comment - Amount & Last Used: pt denies Smoking Status (MU): Light Every Day Tobacco Smoker Type: Cigarettes Amount Used/How Often: 1/2ppd Length of Time of Smoking/Using Tobacco: approx 2009 Have You Smoked in the Last Year: Yes Household Exposure Type: Cigarettes Review of Systems All Other Systems Reviewed And Are Negative: No Constitutional: Positive: Negative Skin: Positive: Other - Rectal pain Respiratory: Positive: Negative Cardiovascular: Positive: Negative Genitourinary: Positive: Negative Neurological/Mental Status: Positive: Negative Psychological: Positive: Negative Physical Exam - Summary Physical Exam Summary: GENERAL: NAD. WDWN. No pain distress. SKIN: No streaking, bleeding, or drainage. CHEST: No accessory muscle use. Breathing comfortably and in no distress. CV: Pulses intact. Cap refill <2seconds RECTAL: At the 11 o'clock position there is a ~8mm external non-thrombosed hemorrhoid that is ttp. No active bleeding. No stool in vault. NEURO: Alert. PSYCH: Age appropriate behavior. Triage Information Reviewed: Yes Vital Signs: Vital Signs: Temp Pulse Resp BP Pulse Ox 98.2 F 98 19 149/85 97 10/13/19 10:23 10/13/19 10:23 10/13/19 10:23 10/13/19 10:23 10/13/19 10:23 Vital Signs Reviewed: Yes Course/Dx - Course Course Of Treatment: Hemorrhoid. Will rx for hydrocortisone cream and refer him to surgery for further eval. Advised to try warm sitz bath. - Diagnoses Provider Diagnosis: External hemorrhoid Discharge ED - Sign-Out/Discharge Documenting (check all that apply): Patient Departure All imaging exams completed and their final reports reviewed: No Studies - Discharge Plan Condition: Stable Disposition: HOME Prescriptions: Hydrocortisone 1% CREAM* [Hytone Cream 1%*] 1 applic TOPICAL BID #1 tube Patient Education Materials: Hemorrhoids (ED) Referrals: Rosi Martell MD [Primary Care Provider] - Luca Pathak MD [Medical Doctor] - 10/15/19 9:00 am Additional Instructions: Use the cream twice a day to improve pain and discomfort You have an appointment with the General Surgeon for 10/15/19 at 9:00am. - Billing Disposition and Condition Condition: STABLE Disposition: Home - Attestation Statements Provider Attestation: I was available for consult. This patient was seen by the MANDO. The patient was not presented to, seen by, or examined by me. -Venessa
[2019-10-13 10:27] VITALS: BP 149/85
== END 2019-10-13 10:50 | disposition home or self-care (01) ==
LOC: UCEAST 09:53
DX: K64.4 Residual hemorrhoidal skin tags (principal); B20 Human immunodeficiency virus [HIV] disease; Z79.899 Other long term (current) drug therapy; Z88.0 Allergy status to penicillin; Z88.2 Allergy status to sulfonamides; F17.210 Nicotine dependence, cigarettes, uncomplicated
CPT/HCPCS: 99212; G0463